=== PATIENT | female | born 1935 | race Caucasian/White ===

== ENCOUNTER 2016-05-02 09:20 | Inpatient (IN) | payer MEDICARE ==
--- NOTE | 2016-05-02 09:46 | ERPHSYRPT ---
- History of Present Illness Time Seen by Provider: 05/02/16 09:38 Source: patient Exam Limitations: no limitations Patient Subjective Stated Complaint: states got out of rehab in [place] for strengthening on tuesday and has upper resp s/s gradually coming on since. c/ o white production sputum with white nasal drainage and intermittent chills. lungs diminshed but clear. skin diaphoretic and pink. states increased sob for days. denies pain or injury. Triage Nursing Assessment: see above Physician History: "Up all night last night with cough with white sputum, blowing nose and congestion." Symptoms present for 2-3 days. Mucinex with some relief. States no energy, gen. malaise, weakness, SOB lani. with exertion along with questionable fever, but no vomiting, diarrhea, chest or abdominal pain. Recently got out of rehab 3 days ago post recently having cardiac event. Pt. with frequency but no dysuria or malodorous urine. Timing/Duration: day(s) (2) Severity: moderate Modifying Factors: Improves With: movement (worsens), ibuprofen Associated Symptoms: shortness of breath, diaphoresis, cough, chills, fever, weakness, No nausea, No vomiting, No abdominal pain, No chest pain, No headaches , No loss of appetite Allergies/Adverse Reactions: adhesive Allergy (Verified 05/02/16 09:33) cephalexin [Cephalexin] Allergy (Verified 05/02/16 09:33) latex [Latex] Allergy (Verified 05/02/16 09:33) levofloxacin [From Levaquin] Allergy (Verified 05/02/16 09:33) Penicillins Allergy (Verified 05/02/16 09:33) cefaclor [From Ceclor] Adverse Reaction (Severe, Verified 05/02/16 09:33) budesonide [From Pulmicort] Adverse Reaction (Mild, Verified 05/02/16 09:33) BRONCHOSPASM TAKES ADVAIR AT HOME Home Medications: Aspirin [Aspir 81] 81 mg PO DAILY 12/28/11 [History] Multivitamin [Multivitamins] 1 cap PO DAILY 12/28/11 [History] Omeprazole 20 MG [Prilosec 20 mg] 40 mg PO DAILY 12/28/11 [History] Paroxetine HCl 20 mg [Paxil 20 MG] 40 mg PO DAILY 12/28/11 [History] Raloxifene HCl 60 mg [Evista 60 MG] 60 mg PO DAILY 12/28/11 [History] Vitamin E 1,000 unit PO DAILY 12/28/11 [History] Metformin HCl 500 mg [Glucophage 500 MG] 500 mg PO BID 11/13/12 [History] Albuterol/Ipratropium 3ml Neb* [DUONEB 0.5-3 MG/3 ml Neb] 3 ml IH Q6H [History] Fluticasone/Salmeterol [Advair 250-50 Diskus] 1 inh PO BID 09/17/13 [History] Lovastatin 40 mg PO DAILY 09/17/13 [History] Calcium Carbonate/Vitamin D3 [Calcarb 600 W-Vitamin D Tab] 1 each PO DAILY 03/16 [History] Levothyroxine Sodium 112 Mcg [Synthroid 112 Mcg] 112 mcg PO DAILY 06/04/14 [History] Vit B Comp/C/FA/Iron/Vit E [Vitamin B Complex Tablet] 1 tab PO DAILY 06/04/14 [ History] Ipratropium/Albuterol Sulfate [Combivent Respimat Inhal Dix] 4 gm IH Q6HPRN PRN 03/06/15 [History] Hx Tetanus, Diphtheria Vaccination/Date Given: Yes Hx Influenza Vaccination/Date Given: Yes Hx Pneumococcal Vaccination/Date Given: Yes Immunizations Up to Date: Yes - Review of Systems Constitutional: Fever, Chills, Fatigue, Weakness Eyes: No Symptoms Ears, Nose, & Throat: Nose Congestion, Nose Discharge, No Throat Pain, No Throat Swelling, No Painful Swallowing Respiratory: Cough, Dyspnea Cardiac: No Chest Pain, No Edema, No Palpitations, No Syncope Abdominal/Gastrointestinal: No Symptoms, No Abdominal Pain, No Nausea, No Vomiting, No Diarrhea Genitourinary Symptoms: No Symptoms, No Dysuria Musculoskeletal: No Symptoms, No Back Pain, No Neck Pain Skin: No Symptoms, No Rash Neurological: No Dizziness, No Focal Weakness, No Sensory Changes Psychological: No Symptoms Endocrine: No Symptoms Hematologic/Lymphatic: No Symptoms Immunological/Allergic: No Symptoms All Other Systems: Reviewed and Negative - Past Medical History Pertinent Past Medical History: Yes Neurological History: No Pertinent History ENT History: Cataracts Cardiac History: Congestive Heart Failure, Coronary Artery Disease, High Cholesterol, Myocardial Infarction ([place]) Respiratory History: Asthma, Bronchitis, COPD, Pneumonia Endocrine Medical History: Diabetes Type II, Hypothyroidism Musculoskeletal History: Arthritis GI Medical History: GERD, Ulcer History: No Pertinent History Psycho-Social History: No Pertinent History Female Reproductive Disorders: No Pertinent History Other Medical History: PT DENIES BEING A DIABETIC BUT DOES TAKE METFORMIN ON HER MEDICATION LIST. HOME 02 - Past Surgical History Past Surgical History: Yes Neuro Surgical History: No Pertinent History Cardiac: Other Respiratory: No Pertinent History Gastrointestinal: No Pertinent History Genitourinary: No Pertinent History Musculoskeletal: No Pertinent History Female Surgical History: Lumpectomy Other Surgical History: BREAST BIOPSYx4, TONSILECTOMY, carotid artery, cataracts removed - Social History Smoking Status: Former smoker How long have you smoked: 50 yrs Exposure to second hand smoke: No Drug Use: none Patient Lives Alone: Yes - Female History Hx Now: No - Nursing Vital Signs Nursing Vital Signs: Initial Vital Signs Temperature 99 F Temperature Source Oral Pulse Rate 84 Respiratory Rate 20 Blood Pressure [Right Arm] 123/61 Pain Intensity 0 - Physical Exam General Appearance: no apparent distress, alert Eye Exam: PERRL/EOMI, eyes nml inspection Ears, Nose, Throat Exam: normal ENT inspection, TMs normal, pharynx normal, moist mucous membranes Neck Exam: normal inspection, non-tender, supple, full range of motion Respiratory Exam: airway intact, diminished breath sounds, rhonchi, wheezing, No respiratory distress Cardiovascular Exam: regular rate/rhythm, normal heart sounds, normal peripheral pulses, tachycardia Gastrointestinal/Abdomen Exam: soft, normal bowel sounds, No tenderness, No distention, No mass Back Exam: normal inspection, normal range of motion, No CVA tenderness, No vertebral tenderness Extremity Exam: normal inspection, normal range of motion, pelvis stable, No pedal edema, No swelling Neurologic Exam: alert, oriented x 3, cooperative, normal mood/affect, nml cerebellar function, nml station & gait, sensation nml, No motor deficits Skin Exam: normal color, warm, dry, No rash Lymphatic Exam: No adenopathy SpO2: 97 Oxygen Delivery: Nasal Cannula - Course Nursing assessment & vital signs reviewed: Yes EKG Interpreted by Me: RATE (108), Sinus Tach, NORMAL AXIS, NORMAL INTERVALS, NORMAL QRS, Non-specific ST Changes, Other (EKG similar to previous on 03/30/16) - Radiology Exams Chest X-ray Interpretation: Interpreted by me, Other (?patchy R infiltrates) Ordered Tests: Active Orders 24 hr Category Date Time Status Electronic Scale Subassembler STAT Care 05/02/16 09:54 Active Cath for Specimen-Straight STAT Care 05/02/16 09:54 Active EKG-ER Only STAT Care 05/02/16 09:54 Active IV Insertion STAT Care 05/02/16 09:54 Active Oxygen-ED Only NASAL CANNULA 2 lpm Care 05/02/16 09:54 Active CHEST 1 VIEW (PORTABLE) Stat Exams 05/02/16 10:00 Completed CBC W DIFF Stat Lab 05/02/16 09:50 Completed CMP Stat Lab 05/02/16 09:50 Completed NT PRO BNP Stat Lab 05/02/16 09:55 Completed TROPONIN Stat Lab 05/02/16 09:55 Completed UA W/ MICROSCOPIC Stat Lab 05/02/16 10:00 Completed Respiratory Nebulizer STAT RT 05/02/16 10:05 Completed Medication Summary Discontinued Medications Generic Name Dose Route Start Last Admin Trade Name Kennethq PRN Reason Stop Dose Admin Acetaminophen 650 mg 05/02/16 09:54 05/02/16 10:28 Tylenol 325 Mg PO 05/02/16 09:55 650 mg STAT STA Administration Acetaminophen Confirm 05/02/16 10:23 Tylenol 325 Mg Administered 05/02/16 10:24 Dose 650 mg .ROUTE .STK-MED ONE Albuterol/Ipratropium Confirm 05/02/16 09:59 Duoneb 0.5-3 Mg/3 Ml Neb Administered 05/02/16 10:00 Dose 3 ml IH .STK-MED ONE Albuterol/Ipratropium 3 ml 05/02/16 10:02 05/02/16 10:07 Duoneb 0.5-3 Mg/3 Ml Neb IH 05/02/16 10:03 3 ml STAT ONE Administration Lorazepam Confirm 05/02/16 10:23 Ativan 2 Mg/1 Ml Vial Administered 05/02/16 10:24 Dose 2 mg .ROUTE .STK-MED ONE Lorazepam 0.5 mg 05/02/16 10:49 05/02/16 10:55 Ativan 2 Mg/1 Ml Vial IV 05/02/16 10:50 0.5 mg STAT ONE Administration Methylprednisolone Sodium Succinate 80 mg 05/02/16 10:02 05/02/16 10:29 Solu-Medrol 125 Mg IV 05/02/16 10:03 80 mg STAT ONE Administration Methylprednisolone Sodium Succinate Confirm 05/02/16 10:23 Solu-Medrol 125 Mg Administered 05/02/16 10:24 Dose 125 mg .ROUTE .STK-MED ONE Lab/Rad Data: Laboratory Result Diagrams 05/02/16 09:50 05/02/16 09:50 Laboratory Results 05/02/16 05/02/16 05/02/16 Range/Units 10:00 09:55 09:50 WBC (4.0-10.5) K/mm3 RBC (4.1-5.4) M/mm3 Hgb (12.0-16.0) gm/dl Hct (35-47) % MCV (78-100) fl MCH (26-32) pg MCHC (32-36) g/dl RDW (11.5-14.0) % Plt Count (150-450) K/mm3 MPV (6-9.5) fl Gran % (36.0-66.0) % Lymphocytes % (24.0-44.0) % Monocytes % (0.0-12.0) % Eosinophils % (0.00-5.0) % Basophils % (0.0-0.4) % Basophils # (0-0.4) Sodium (136-145) mEq/L Potassium (3.5-5.1) mEq/L Chloride (98-107) mEq/L Carbon Dioxide (21-32) mEq/L Anion Gap (5-15) MEQ/L BUN (9-20) mg/dL Creatinine (0.55-1.30) mg/dl Estimated GFR ML/MIN Glucose (70-110) MG/DL Calcium (8.5-10.1) mg/dL Total Bilirubin (0.2-1.0) mg/dL AST (15-37) U/L ALT (12-78) U/L Alkaline Phosphatase (46-116) U/L Troponin I < 0.017 (0.000-0.056) ng/ml NT-Pro-B Natriuret Pep 508 H (0-450) pg/ml Serum Total Protein (6.4-8.2) gm/dL Albumin (3.4-5.0) g/dL Ur Collection Type CATH Urine Color YELLOW (YELLOW) Urine Appearance CLEAR (CLEAR) Urine pH 5.5 (5-6) Ur Specific [place] 1.025 (1.005-1.025) Urine Protein 100 (Negative) Urine Glucose (UA) NEGATIVE (NEGATIVE) mg/dL Urine Ketones NEGATIVE (NEGATIVE) Urine Nitrite NEGATIVE (NEGATIVE) Urine Bilirubin SMALL (NEGATIVE) Urine Urobilinogen 0.2 (0-1) mg/dL Urine WBC (Auto) NEGATIVE (NEGATIVE) Urine RBC (Auto) MODERATE (0-5) Mil/ul Urine Microscopic RBC 2-5 (0-2) /HPF Urine Microscopic WBC 0-2 (0-5) /HPF Ur Epithelial Cells FEW (FEW) /HPF Urine Bacteria FEW (NEGATIVE) /HPF Urine Mucus MODERATE (NEGATIVE) /HPF Influenza Type A Ag POSITIVE (NEGATIVE) Influenza Type B Ag NEGATIVE (NEGATIVE) RSV (PCR) NEGATIVE (Negative) Specimen Received [id number] 05/02/16 05/02/16 Range/Units 09:50 09:50 WBC 4.2 (4.0-10.5) K/mm3 RBC 3.50 L (4.1-5.4) M/mm3 Hgb 10.1 L (12.0-16.0) gm/dl Hct 32.7 L (35-47) % MCV 93.4 (78-100) fl MCH 28.8 (26-32) pg MCHC 30.9 L (32-36) g/dl RDW 13.3 (11.5-14.0) % Plt Count 269 (150-450) K/mm3 MPV 8.4 (6-9.5) fl Gran % 72.8 H (36.0-66.0) % Lymphocytes % 18.0 L (24.0-44.0) % Monocytes % 8.0 (0.0-12.0) % Eosinophils % 0.7 (0.00-5.0) % Basophils % 0.5 (0.0-0.4) % Basophils # 0.02 (0-0.4) Sodium 144 (136-145) mEq/L Potassium 4.0 (3.5-5.1) mEq/L Chloride 105 (98-107) mEq/L Carbon Dioxide 29.0 (21-32) mEq/L Anion Gap 13.5 (5-15) MEQ/L BUN 9 (9-20) mg/dL Creatinine 1.06 (0.55-1.30) mg/dl Estimated GFR 53 ML/MIN Glucose 141 H (70-110) MG/DL Calcium 8.4 L (8.5-10.1) mg/dL Total Bilirubin 0.3 (0.2-1.0) mg/dL AST 19 (15-37) U/L ALT 14 (12-78) U/L Alkaline Phosphatase 62 (46-116) U/L Troponin I (0.000-0.056) ng/ml NT-Pro-B Natriuret Pep (0-450) pg/ml Serum Total Protein 6.9 (6.4-8.2) gm/dL Albumin 3.3 L (3.4-5.0) g/dL Ur Collection Type Urine Color (YELLOW) Urine Appearance (CLEAR) Urine pH (5-6) Ur Specific [place] (1.005-1.025) Urine Protein (Negative) Urine Glucose (UA) (NEGATIVE) mg/dL Urine Ketones (NEGATIVE) Urine Nitrite (NEGATIVE) Urine Bilirubin (NEGATIVE) Urine Urobilinogen (0-1) mg/dL Urine WBC (Auto) (NEGATIVE) Urine RBC (Auto) (0-5) Mil/ul Urine Microscopic RBC (0-2) /HPF Urine Microscopic WBC (0-5) /HPF Ur Epithelial Cells (FEW) /HPF Urine Bacteria (NEGATIVE) /HPF Urine Mucus (NEGATIVE) /HPF Influenza Type A Ag (NEGATIVE) Influenza Type B Ag (NEGATIVE) RSV (PCR) (Negative) Specimen Received - Progress Progress: improved Progress Note: 05/02/16 10:11 patient was given Tylenol, DuoNeb and Solu-Medrol. Patient did seem to improve post treatment. Discussed with : Olivia (agree that patient should be admitted due to her living situation and very symptomatic for influenza.) Counseled pt/family regarding: lab results, diagnosis, rad results - Departure Time of Disposition: 11:37 Departure Disposition: Observation Clinical Impression: Influenza A Condition: Stable Critical Care Time: No
[2016-05-02] MEDS ORDERED: TYLENOL 325 MG PO STA (09:54)
[2016-05-02] MEDS ORDERED: DUONEB 0.5-3 MG/3 ml Neb IH ONE ×2 (09:59→10:02)
[2016-05-02] MEDS ORDERED: solu-MEDROL 125 MG IV ONE (10:02)
[2016-05-02 10:09] LABS: BASOPHIL % 0.5 % (0.0-0.4); Eosinophil % 0.7 % (0.00-5.0); Granulocytes % 72.8 % (36.0-66.0); Mean Cell Volume 93.4 fl (78-100); Mean Platelet Volume 8.4 fl (6-9.5); Platelet Count 269 K/mm3 (150-450); Red Cell Distribution Width 13.3 % (11.5-14.0); White Blood Count 4.2 K/mm3 (4.0-10.5)
[2016-05-02 10:10] LABS: Mean Corpuscular Hemoglobin 28.8 pg (26-32)
[2016-05-02 10:16] LABS: ALBUMIN 3.3 g/dL (3.4-5.0); ANION GAP 13.5 MEQ/L (5-15); BILIRUBIN,TOTAL 0.3 mg/dL (0.2-1.0); Total Protein 6.9 gm/dL (6.4-8.2)
[2016-05-02] MEDS ORDERED: TYLENOL 325 MG ONE (10:23)
[2016-05-02] MEDS ORDERED: Ativan 2 MG/1 ML VIAL ONE (10:23)
[2016-05-02] MEDS ORDERED: solu-MEDROL 125 MG ONE (10:23)
[2016-05-02 10:27] LABS: COMPLETE URINE MICROSCOPIC? YES; Collection Type CATH; Ph 5.5 (5-6)
[2016-05-02 10:37] LABS: Bacteria FEW /HPF (NEGATIVE); Epithelial Cells FEW /HPF (FEW); WBC 0-2 /HPF (0-5)
[2016-05-02 10:38] LABS: Mucus MODERATE /HPF (NEGATIVE)
[2016-05-02 10:45] LABS: TROPONIN < 0.017 ng/ml (0.000-0.056)
[2016-05-02] MEDS ORDERED: Ativan 2 MG/1 ML VIAL IV ONE (10:49)
--- NOTE | 2016-05-02 11:06 | XRAY ---
Indication: Cough and short of breath. History of COPD. Comparison: March 24, 2016. Portable apical lordotic chest now demonstrates subtle right base infiltrate versus atelectasis. Remaining lungs again hyperinflated and clear. Heart is not enlarged. Bony thorax intact again with mild osteopenia and degenerative changes. Impression: New subtle base infiltrate/atelectasis. Correlate clinically.
[2016-05-02] MEDS: Sodium Chloride 0.9% 1000 ML 1,000 ML IV SCH (13:16)
[2016-05-02] MEDS: DUONEB 0.5-3 MG/3 ml Neb IH SCH ×3 (14:20→23:40)
[2016-05-02] MEDS: SYNTHROID 112 MCG PO SCH (14:45)
[2016-05-02] MEDS: Protonix 40MG Tablet PO SCH (14:45)
[2016-05-02] MEDS: Paxil 20 MG PO SCH (14:45)
[2016-05-02] MEDS: ECOTRIN 81 MG PO SCH (14:45)
[2016-05-02] MEDS: THERAGRAN MULTIVITAMIN PO SCH (14:45)
[2016-05-02] MEDS: EVISTA 60 MG PO SCH (14:45)
[2016-05-02] MEDS: Calcium 500MG W/Vit D Tablet PO SCH (14:45)
[2016-05-02] MEDS: Vitamin E 400 UNIT SOFTGEL PO SCH (14:46)
[2016-05-02] MEDS: VITA-BEE WITH C PO SCH (14:46)
[2016-05-02] MEDS: Glucophage 500 MG PO SCH (17:06)
--- NOTE | 2016-05-02 18:14 | PCM.HP ---
History of Present Illness - Chief Complaint Chief Complaint: c/o shortness of breath for 2-3 days History of Present Illness: is a 80 year old female states increased sob for days. denies pain or injury."Up all night last night with cough with white sputum, blowing nose and congestion." Symptoms present for 2-3 days. Mucinex with some relief. States no energy, gen. malaise, weakness, SOB lani. with exertion along with questionable fever, but no vomiting, diarrhea, chest or abdominal pain. Recently got out of rehab 3 days ago post recently having cardiac event. Pt. with frequency but no dysuria or malodorous urine. Timing/Duration: day(s) (2) Severity: moderate Modifying Factors: Improves With: movement (worsens), ibuprofen Associated Symptoms: shortness of breath, diaphoresis, cough, chills, fever, weakness, No nausea, No vomiting, No abdominal pain, No chest pain, No headaches , No loss of appetite - Review of Systems Constitutional: Fever, Chills, Malaise, Weakness Eyes: No Symptoms Ears, Nose, & Throat: No Symptoms Respiratory: Cough, Orthopnea, Short Of Breath, Wheezing Cardiac: No Chest Pain, No Edema, No Syncope Abdominal/Gastrointestinal: No Abdominal Pain, No Nausea, No Vomiting, No Diarrhea Genitourinary Symptoms: No Dysuria Musculoskeletal: No Back Pain, No Neck Pain Skin: No Rash Neurological: No Dizziness, No Focal Weakness, No Sensory Changes Psychological: No Symptoms Endocrine: No Symptoms Hematologic/Lymphatic: No Symptoms Immunological/Allergic: No Symptoms Medications & Allergies Home Medications: Home Medication List Aspirin [Aspir 81] 81 mg PO DAILY 12/28/11 [History Confirmed 05/02/16] Multivitamin [Multivitamins] 1 cap PO DAILY 12/28/11 [History Confirmed 05/02/16 ] Omeprazole 20 MG [Prilosec 20 mg] 40 mg PO DAILY 12/28/11 [History Confirmed ] Paroxetine HCl 20 mg [Paxil 20 MG] 40 mg PO DAILY 12/28/11 [History Confirmed 05/02/16] Raloxifene HCl 60 mg [Evista 60 MG] 60 mg PO DAILY 12/28/11 [History Confirmed 05/02/16] Vitamin E 1,000 unit PO DAILY 12/28/11 [History Confirmed 05/02/16] Metformin HCl 500 mg [Glucophage 500 MG] 500 mg PO BID 11/13/12 [History Confirmed 05/02/16] Albuterol/Ipratropium 3ml Neb* [DUONEB 0.5-3 MG/3 ml Neb] 3 ml IH Q6H [History Confirmed 05/02/16] Fluticasone/Salmeterol [Advair 250-50 Diskus] 1 inh PO BID 09/17/13 [History Confirmed 05/02/16] Lovastatin 40 mg PO DAILY 09/17/13 [History Confirmed 05/02/16] Calcium Carbonate/Vitamin D3 [Calcarb 600 W-Vitamin D Tab] 1 each PO DAILY 03/16 [History Confirmed 05/02/16] Levothyroxine Sodium 112 Mcg [Synthroid 112 Mcg] 112 mcg PO DAILY 06/04/14 [History Confirmed 05/02/16] Vit B Comp/C/FA/Iron/Vit E [Vitamin B Complex Tablet] 1 tab PO DAILY 06/04/14 [ History Confirmed 05/02/16] Ipratropium/Albuterol Sulfate [Combivent Respimat Inhal Ventress] 4 gm IH Q6HPRN PRN 03/06/15 [History Confirmed 05/02/16] Allergies/Adverse Reactions: Allergies Allergy/AdvReac Type Severity Reaction Status Date / Time adhesive Allergy Verified 05/02/16 09:33 cephalexin [Cephalexin] Allergy Verified 05/02/16 09:33 latex [Latex] Allergy Verified 05/02/16 09:33 levofloxacin [From Levaquin] Allergy Verified 05/02/16 09:33 Penicillins Allergy Verified 05/02/16 09:33 cefaclor [From Ceclor] AdvReac Severe Verified 05/02/16 09:33 budesonide [From Pulmicort] AdvReac Mild [place]ON[place]AS Verified 05/02/16 09:33 M - Past Medical History Past Medical History: Yes Neurological History: No Pertinent History ENT History: Cataracts Cardiac History: Coronary Artery Disease, High Cholesterol, Myocardial Infarction ([place]) Respiratory History: Asthma, Bronchitis, COPD, Pneumonia Endocrine Medical History: Hypothyroidism Musculoskelatal History: Arthritis GI Medical History: No Pertinent History History: No Pertinent History Pyscho-Social History: No Pertinent History Reproductive Disorders: No Pertinent History Comment: PT DENIES BEING A DIABETIC BUT DOES TAKE METFORMIN ON HER MEDICATION LIST. HOME 02 - Female History Are you now?: No - Past Surgical History Past Surgical History: Yes Neuro Surgical History: No Pertinent History Cardiac History: Other Respiratory Surgery: No Pertinent History GI Surgical History: No Pertinent History Genitourinary Surgical Hx: No Pertinent History Musculskeletal Surgical Hx: No Pertinent History Female Surgical History: Lumpectomy Other Surgical History: BREAST BIOPSYx4 all benign, TONSILECTOMY, carotid artery , rt. cataracts removed - Social History Smoking Status: Former smoker How long have you smoked: 50 yrs Exposure to second hand smoke: No Alcohol: None Drug Use: none - Physical Exam Vital Signs: Vital Signs - 24 hr Temp Pulse Resp BP Pulse Ox 05/02/16 17:26 98.7 F 110 H 21 126/72 99 05/02/16 14:21 122 H 24 93 L 05/02/16 13:26 99 F 05/02/16 12:10 100.2 F 107 H 22 126/60 94 L 05/02/16 11:38 97 05/02/16 11:21 123/61 94 L 05/02/16 10:28 99 F 05/02/16 10:10 84 20 136/81 96 05/02/16 10:08 107 H 22 99 05/02/16 09:23 99.7 F 104 H 22 160/78 97 Oxygen-Last 24 hours O2 Percentage 2 Liters = 28% O2 Percentage 2 Liters = 28% O2 Percentage 2 Liters = 28% O2 Percentage 3 Liters = 32% O2 Percentage 2 Liters = 28% O2 Percentage 2 Liters = 28% General Appearance: no apparent distress, alert Neurologic Exam: alert, oriented x 3, cooperative, normal mood/affect, nml cerebellar function, nml station & gait, sensation nml, No motor deficits Eye Exam: PERRL/EOMI, eyes nml inspection Ears, Nose, Throat Exam: normal ENT inspection, TMs normal, pharynx normal, moist mucous membranes Neck Exam: normal inspection, non-tender, supple, full range of motion Respiratory Exam: respiratory distress, diminished breath sounds, prolonged expirations, rhonchi, wheezing Cardiovascular Exam: regular rate/rhythm, normal heart sounds, normal peripheral pulses Gastrointestinal/Abdomen Exam: soft, normal bowel sounds, No tenderness, No mass Back Exam: normal inspection, normal range of motion, No CVA tenderness, No vertebral tenderness Extremity Exam: normal inspection, normal range of motion, pelvis stable Skin Exam: normal color, warm, dry, No rash Lymphatic Exam: No adenopathy Results - Other Procedures and Tests Respiratory Therapy 05/02/16 13:35 Respiratory MDI BID Respiratory Nebulizer Q4H 05/02/16 13:36 Oxygen NASAL CANNULA 2 lpm Assessment/Plan (1) Influenza A Current Visit: Yes Status: Acute Assessment & Plan: continue supportive treatment, IV fluids, diet regular Code(s): J10.1 - FLU DUE TO OTH IDENT INFLUENZA VIRUS W OTH RESP MANIFEST (2) COPD exacerbation Current Visit: No Status: Acute Assessment & Plan: continue all home meds, continue bronchodilaters Code(s): J44.1 - CHRONIC OBSTRUCTIVE PULMONARY DISEASE W (ACUTE) EXACERBATION
[2016-05-02] MEDS ORDERED: NovoLOG Insulin SQ PRN (18:40)
[2016-05-02] MEDS: ADVAIR 250-50 DISKUS 14 DOSE IH SCH (19:07)
[2016-05-02] MEDS: TYLENOL 325 MG PO PRN (21:08)
[2016-05-02] MEDS: ZOCOR 20MG PO SCH (22:04)
[2016-05-03] MEDS: DUONEB 0.5-3 MG/3 ml Neb IH SCH ×6 (03:17→23:36)
[2016-05-03] MEDS: ADVAIR 250-50 DISKUS 14 DOSE IH SCH ×2 (07:55→18:31)
[2016-05-03] MEDS: Glucophage 500 MG PO SCH ×2 (08:01→16:58)
[2016-05-03] MEDS: Paxil 20 MG PO SCH (09:31)
[2016-05-03] MEDS: THERAGRAN MULTIVITAMIN PO SCH (09:31)
[2016-05-03] MEDS: ECOTRIN 81 MG PO SCH (09:31)
[2016-05-03] MEDS: Protonix 40MG Tablet PO SCH (09:31)
[2016-05-03] MEDS: EVISTA 60 MG PO SCH (09:31)
[2016-05-03] MEDS: Vitamin E 400 UNIT SOFTGEL PO SCH (09:31)
[2016-05-03] MEDS: Calcium 500MG W/Vit D Tablet PO SCH (09:31)
[2016-05-03] MEDS: VITA-BEE WITH C PO SCH (09:32)
[2016-05-03] MEDS: Sodium Chloride 0.9% 1000 ML 1,000 ML IV SCH (09:32)
[2016-05-03] MEDS: SYNTHROID 112 MCG PO SCH (09:32)
[2016-05-03] MEDS ORDERED: NON-FORMULARY ITEM (Omeprazole 20 Mg [Prilosec 20 Mg] 40 MG) PO SCH (10:00)
[2016-05-03] MEDS ORDERED: VIT E PO SCH (10:00)
[2016-05-03] MEDS ORDERED: IRON PO SCH (10:00)
[2016-05-03] MEDS ORDERED: CALCIUM CARBONATE PO SCH (10:00)
[2016-05-03] MEDS ORDERED: [UNRECOGNIZED DRUG - OTHER] PO SCH (10:00)
[2016-05-03] MEDS ORDERED: NON-FORMULARY ITEM (Multivitamin [Multivitamins] 1 CAP) PO SCH (10:00)
[2016-05-03] MEDS ORDERED: VITAMIN D3 PO SCH (10:00)
[2016-05-03] MEDS ORDERED: VITAMIN E 1000 UNIT PO SCH (10:00)
[2016-05-03] MEDS ORDERED: NON-FORMULARY ITEM (Lovastatin [Lovastatin] 40 MG) PO SCH (10:00)
[2016-05-03] MEDS ORDERED: VIT B COMP PO SCH (10:00)
--- NOTE | 2016-05-03 13:07 | PCM.NOTE ---
Date and Time: 05/03/16 1305 Subjective Assessment: c/o cough, chest congestion - Review of Systems Constitutional: Fever, Chills, Malaise Eyes: No Symptoms Ears, Nose, & Throat: No Symptoms Respiratory: Cough, Orthopnea, Short Of Breath, Wheezing Cardiac: No Chest Pain, No Edema, No Syncope Abdominal/Gastrointestinal: No Abdominal Pain, No Nausea, No Vomiting, No Diarrhea Genitourinary Symptoms: No Dysuria Musculoskeletal: No Back Pain, No Neck Pain Skin: No Rash Neurological: No Dizziness, No Focal Weakness, No Sensory Changes Psychological: No Symptoms Endocrine: No Symptoms Hematologic/Lymphatic: No Symptoms Immunological/Allergic: No Symptoms Objective Exam General Appearance: no apparent distress, alert Neurologic Exam: alert, oriented x 3, cooperative, normal mood/affect, nml cerebellar function, sensation nml, No motor deficits Skin Exam: normal color, warm, dry Eye Exam: PERRL, EOMI, eyes nml inspection Ears, Nose, Throat Exam: normal ENT inspection, pharynx normal, moist mucous membranes Neck Exam: normal inspection, non-tender, supple, full range of motion Respiratory Exam: diminished breath sounds, prolonged expirations, crackles/ rales, rhonchi, wheezing, No respiratory distress Cardiovascular Exam: regular rate/rhythm, normal heart sounds Gastrointestinal/Abdomen Exam: soft, No tenderness, No mass Extremity Exam: normal inspection, normal range of motion Back Exam: normal inspection, normal range of motion, No CVA tenderness, No vertebral tenderness Pelvic Exam: deferred Rectal Exam: deferred OBJECTIVE DATA Vital Signs: Vital Signs - 24 hr Temp Pulse Resp BP Pulse Ox 05/03/16 12:00 98.7 F 106 H 21 140/61 97 05/03/16 11:00 105 H 20 97 05/03/16 07:59 107 H 22 95 05/03/16 07:19 98.0 F 83 22 131/57 98 05/03/16 04:00 98.2 F 105 H 26 H 152/63 95 05/03/16 03:25 105 H 26 H 95 05/03/16 00:32 97.9 F 112 H 18 122/56 93 L 05/02/16 23:44 111 H 20 95 05/02/16 20:19 98.2 F 115 H 17 137/58 96 05/02/16 19:11 116 H 14 97 05/02/16 17:26 98.7 F 110 H 21 126/72 99 05/02/16 14:21 122 H 24 93 L 05/02/16 13:26 99 F Oxygen-Last 24 hours O2 Percentage 2 Liters = 28% O2 Percentage 3 Liters = 32% O2 Percentage 2 Liters = 28% O2 Percentage 2 Liters = 28% O2 Percentage 2 Liters = 28% O2 Percentage 2 Liters = 28% Pain Assessment - Last Documented Pain Intensity 3 Pain Scale Used 0-10 Pain Scale Intake and Output: Intake & Output 05/01/16 05/02/16 05/03/16 05/04/16 11:59 11:59 11:59 11:59 Intake Total 2641 300 Output Total 1000 Balance 1641 300 Lab Results: Accuchecks Date 05/03/16 Date 05/02/16 Time 07:30 Time 16:30 Accucheck Value: 107 Accucheck Value: 207 Accucheck Value: 246 Assessment/Plan (1) Influenza A Current Visit: Yes Status: Acute Assessment & Plan: continue present managemnt Code(s): J10.1 - FLU DUE TO OTH IDENT INFLUENZA VIRUS W OTH RESP MANIFEST (2) COPD exacerbation Current Visit: No Status: Acute Assessment & Plan: continue present management Code(s): J44.1 - CHRONIC OBSTRUCTIVE PULMONARY DISEASE W (ACUTE) EXACERBATION
[2016-05-03] MEDS: OSELTAMIVIR PHOSPHATE 30 MG CAP PO SCH ×2 (13:48→21:49)
[2016-05-03] MEDS: Robitussin AC Syrup Unit Dose Cup PO PRN ×2 (13:53→22:02)
[2016-05-03] MEDS ORDERED: Tamiflu 75MG Capsule PO SCH (14:00)
[2016-05-03] MEDS ORDERED: PROVENTIL 2.5 MG/3 ML NEB IH ONE (21:17)
[2016-05-03] MEDS: PROVENTIL 2.5 MG/3 ML NEB IH PRN (21:18)
[2016-05-03] MEDS: ZOCOR 20MG PO SCH (21:49)
[2016-05-03] MEDS: TYLENOL 325 MG PO PRN (23:59)
[2016-05-04] MEDS: DUONEB 0.5-3 MG/3 ml Neb IH SCH ×7 (03:17→22:37)
[2016-05-04] MEDS: Sodium Chloride 0.9% 1000 ML 1,000 ML IV SCH (05:19)
[2016-05-04] MEDS: Glucophage 500 MG PO SCH ×2 (07:44→16:28)
[2016-05-04] MEDS: EVISTA 60 MG PO SCH (07:44)
[2016-05-04] MEDS: Calcium 500MG W/Vit D Tablet PO SCH (07:44)
[2016-05-04] MEDS: ECOTRIN 81 MG PO SCH (07:44)
[2016-05-04] MEDS: Paxil 20 MG PO SCH (07:44)
[2016-05-04] MEDS: THERAGRAN MULTIVITAMIN PO SCH (07:44)
[2016-05-04] MEDS: Protonix 40MG Tablet PO SCH (07:44)
[2016-05-04] MEDS: SYNTHROID 112 MCG PO SCH (07:45)
[2016-05-04] MEDS: VITA-BEE WITH C PO SCH (07:45)
[2016-05-04] MEDS: Vitamin E 400 UNIT SOFTGEL PO SCH (07:45)
[2016-05-04] MEDS: OSELTAMIVIR PHOSPHATE 30 MG CAP PO SCH ×2 (07:46→21:23)
[2016-05-04] MEDS: ADVAIR 250-50 DISKUS 14 DOSE IH SCH ×2 (08:01→19:02)
--- NOTE | 2016-05-04 12:15 | PCM.NOTE ---
Date and Time: 05/04/16 1213 Subjective Assessment: doing better - Review of Systems Constitutional: No Fever, No Chills Eyes: No Symptoms Ears, Nose, & Throat: No Symptoms Respiratory: No Cough, No Short Of Breath Cardiac: No Chest Pain, No Edema, No Syncope Abdominal/Gastrointestinal: No Abdominal Pain, No Nausea, No Vomiting, No Diarrhea Genitourinary Symptoms: No Dysuria Musculoskeletal: No Back Pain, No Neck Pain Skin: No Rash Neurological: No Dizziness, No Focal Weakness, No Sensory Changes Psychological: No Symptoms Endocrine: No Symptoms Hematologic/Lymphatic: No Symptoms Immunological/Allergic: No Symptoms Objective Exam General Appearance: no apparent distress, alert Neurologic Exam: alert, oriented x 3, cooperative, normal mood/affect, nml cerebellar function, sensation nml, No motor deficits Skin Exam: normal color, warm, dry Eye Exam: PERRL, EOMI, eyes nml inspection Ears, Nose, Throat Exam: normal ENT inspection, pharynx normal, moist mucous membranes Neck Exam: normal inspection, non-tender, supple, full range of motion Respiratory Exam: diminished breath sounds, prolonged expirations, crackles/ rales, wheezing, No respiratory distress Cardiovascular Exam: regular rate/rhythm, normal heart sounds Gastrointestinal/Abdomen Exam: soft, No tenderness, No mass Extremity Exam: normal inspection, normal range of motion Back Exam: normal inspection, normal range of motion, No CVA tenderness, No vertebral tenderness Pelvic Exam: deferred Rectal Exam: deferred OBJECTIVE DATA Vital Signs: Vital Signs - 24 hr Temp Pulse Resp BP Pulse Ox 05/04/16 11:26 98.6 F 98 H 21 104/53 94 L 05/04/16 11:00 98 H 21 94 L 05/04/16 07:25 98.4 F 100 H 21 117/61 95 05/04/16 07:00 110 H 22 97 05/04/16 04:00 99.9 F 118 H 23 135/63 92 L 05/04/16 03:17 118 H 23 92 L 05/04/16 00:00 102.0 F 116 H 23 143/60 94 L 05/03/16 23:59 102 F 05/03/16 23:36 116 H 23 94 L 05/03/16 21:18 107 H 24 97 05/03/16 20:00 98.9 F 104 H 20 122/84 100 05/03/16 18:30 102 H 22 99 05/03/16 16:00 99.0 F 101 H 24 126/59 98 05/03/16 15:00 105 H 20 96 Oxygen-Last 24 hours O2 Percentage 2 Liters = 28% O2 Percentage 2 Liters = 28% O2 Percentage 3 Liters = 32% O2 Percentage 2 Liters = 28% Pain Assessment - Last Documented Pain Intensity 4 Pain Scale Used 0-10 Pain Scale Intake and Output: Intake & Output 05/02/16 05/03/16 05/04/16 05/05/16 11:59 11:59 11:59 11:59 Intake Total 2641 2690 Output Total 1000 3900 Balance 1641 -1210 Lab Results: Accuchecks Date 05/04/16 Date 05/03/16 Date 05/03/16 Time 07:30 Time 22:00 Time 16:30 Accucheck Value: 104 Accucheck Value: 98 Accucheck Value: 109 Assessment/Plan (1) Influenza A Current Visit: Yes Status: Acute Assessment & Plan: continue present management Code(s): J10.1 - FLU DUE TO OTH IDENT INFLUENZA VIRUS W OTH RESP MANIFEST (2) COPD exacerbation Current Visit: Yes Status: Acute Code(s): J44.1 - CHRONIC OBSTRUCTIVE PULMONARY DISEASE W (ACUTE) EXACERBATION
[2016-05-04] MEDS: Lidoderm Patch 5% TOP SCH (12:45)
[2016-05-04] MEDS: ZOCOR 20MG PO SCH (21:23)
[2016-05-04] MEDS: Robitussin AC Syrup Unit Dose Cup PO PRN (23:47)
[2016-05-05] MEDS: Sodium Chloride 0.9% 1000 ML 1,000 ML IV SCH (01:15)
[2016-05-05] MEDS: DUONEB 0.5-3 MG/3 ml Neb IH SCH ×4 (03:06→14:22)
[2016-05-05] MEDS: TYLENOL 325 MG PO PRN (05:33)
[2016-05-05] MEDS: ADVAIR 250-50 DISKUS 14 DOSE IH SCH (07:12)
[2016-05-05] MEDS: Lidoderm Patch 5% TOP SCH (07:42)
[2016-05-05] MEDS: Protonix 40MG Tablet PO SCH (07:43)
[2016-05-05] MEDS: SYNTHROID 112 MCG PO SCH (07:43)
[2016-05-05] MEDS: OSELTAMIVIR PHOSPHATE 30 MG CAP PO SCH (07:43)
[2016-05-05] MEDS: EVISTA 60 MG PO SCH (07:43)
[2016-05-05] MEDS: Glucophage 500 MG PO SCH (07:43)
[2016-05-05] MEDS: Paxil 20 MG PO SCH (07:43)
[2016-05-05] MEDS: THERAGRAN MULTIVITAMIN PO SCH (07:43)
[2016-05-05] MEDS: ECOTRIN 81 MG PO SCH (07:43)
[2016-05-05] MEDS: Calcium 500MG W/Vit D Tablet PO SCH (07:43)
[2016-05-05] MEDS: VITA-BEE WITH C PO SCH (07:44)
[2016-05-05] MEDS: Vitamin E 400 UNIT SOFTGEL PO SCH (07:44)
[2016-05-05] MEDS: PROVENTIL 2.5 MG/3 ML NEB IH PRN (14:10)
[2016-05-05 16:23] VITALS: BP 160/60; PULSE 92; O2SAT 97
== END 2016-05-05 17:30 | disposition home health service (06) | DRG 194 ==
LOC: ED 09:20 → MED SURG 12:18 → OBSVTOIN 05-03 13:05
PROVIDERS: ADMIT General Practice; ATTEND General Practice
DX: J10.1 Influenza due to other identified influenza virus with other respiratory manifestations (principal); J44.1 Chronic obstructive pulmonary disease with (acute) exacerbation; I50.9 Heart failure, unspecified; I25.10 Atherosclerotic heart disease of native coronary artery without angina pectoris; E11.9 Type 2 diabetes mellitus without complications; Z79.4 Long term (current) use of insulin; E03.9 Hypothyroidism, unspecified; M19.90 Unspecified osteoarthritis, unspecified site; K21.9 Gastro-esophageal reflux disease without esophagitis; Z99.81 Dependence on supplemental oxygen; Z79.899 Other long term (current) drug therapy
CPT/HCPCS: 36415; 71010; 80053; 81000; 82962; 83880; 84484; 85025; 87631; 93005; 93041; 94640; 94760; 96374; 96375; 99285; G0378; J2060; J2930; P9612; A9270-GY

== ENCOUNTER 2016-10-26 15:21 | Observation (INO) | payer MEDICARE ==
[2016-10-26] MEDS ORDERED: PHARMACY DOSING REQUEST MC ONE (16:29)
--- NOTE | 2016-10-26 16:53 | XRAY ---
Indication: Coughing phlegm. Fever. Comparison: May 11, 2016. PA/lateral chest unchanged again hyperinflated and clear with incidental left upper lobe calcified granuloma. Heart and mediastinal structures within normal limits. Bony thorax intact. Impression: Stable nonacute hyperinflated chest.
[2016-10-26 17:13] LABS: BASOPHIL % 0.3 % (0.0-0.4); Eosinophil % 5.7 % (0.00-5.0); Granulocytes % 64.1 % (36.0-66.0); Lymphocytes % 23.1 % (24.0-44.0); Mean Cell Volume 87.8 fl (78-100); Mean Corpuscular Hemoglobin 27.9 pg (26-32); Mean Platelet Volume 8.4 fl (6-9.5); Monocytes % 6.8 % (0.0-12.0); Platelet Count 319 K/mm3 (150-450); Red Blood Count 3.69 M/mm3 (4.1-5.4); Red Cell Distribution Width 12.5 % (11.5-14.0); White Blood Count 7.8 K/mm3 (4.0-10.5)
[2016-10-26] MEDS ORDERED: ALBUTEROL SULFATE IH PRN (17:27)
[2016-10-26] MEDS ORDERED: [UNRECOGNIZED DRUG - OTHER] IH PRN (17:27)
[2016-10-26] MEDS ORDERED: ULTRAM 50 MG PO PRN (17:27)
[2016-10-26] MEDS ORDERED: IPRATROPIUM IH PRN (17:27)
[2016-10-26 17:57] LABS: ALBUMIN 3.3 g/dL (3.4-5.0); ANION GAP 13.7 MEQ/L (5-15); BILIRUBIN,TOTAL 0.3 mg/dL (0.2-1.0); Carbon Dioxide 27.4 mEq/L (21-32); Total Protein 7.1 gm/dL (6.4-8.2)
[2016-10-26] MEDS: ECOTRIN 81 MG PO SCH ×2 (17:58→18:04)
[2016-10-26] MEDS: ZOCOR 20MG PO SCH ×2 (17:59→18:03)
[2016-10-26] MEDS: Paxil 20 MG PO SCH ×2 (17:59→18:03)
[2016-10-26] MEDS: EVISTA 60 MG PO SCH ×2 (17:59→18:04)
[2016-10-26] MEDS: THERAGRAN MULTIVITAMIN PO SCH ×2 (17:59→18:04)
[2016-10-26] MEDS: Calcium 500MG W/Vit D Tablet PO SCH ×2 (17:59→18:04)
[2016-10-26] MEDS: Glucophage 500 MG PO SCH ×2 (17:59→18:04)
[2016-10-26] MEDS: solu-MEDROL 40 MG IV SCH ×2 (17:59→18:04)
[2016-10-26] MEDS: Sodium Chloride 0.9% 1000 ML 1,000 ML IV SCH (18:00)
[2016-10-26] MEDS: Protonix 40MG Tablet PO SCH (18:03)
[2016-10-26] MEDS: CLINDAMYCIN-D5W 600 MG/50 ML*** 600 MG/50 ML BAG IV SCH (18:07)
[2016-10-26] MEDS: Vitamin E 400 UNIT SOFTGEL PO SCH (18:08)
[2016-10-26] MEDS: SYNTHROID 112 MCG PO SCH (18:09)
[2016-10-26] MEDS: OSELTAMIVIR PHOSPHATE 30 MG CAP PO SCH (18:09)
[2016-10-26] MEDS: VITA-BEE WITH C PO SCH (18:11)
[2016-10-26] MEDS: DUONEB 0.5-3 MG/3 ml Neb IH SCH (19:13)
[2016-10-26] MEDS: Advair Hfa 115/21 Common canister IH SCH (19:14)
[2016-10-26] MEDS ORDERED: ADVAIR 250-50 DISKUS 14 DOSE IH SCH (22:00)
[2016-10-27] MEDS: DUONEB 0.5-3 MG/3 ml Neb IH SCH ×4 (00:50→19:45)
[2016-10-27] MEDS: CLINDAMYCIN-D5W 600 MG/50 ML*** 600 MG/50 ML BAG IV SCH ×3 (01:13→17:07)
[2016-10-27] MEDS: Advair Hfa 115/21 Common canister IH SCH ×2 (07:15→19:48)
[2016-10-27] MEDS: solu-MEDROL 40 MG IV SCH ×2 (07:57→16:19)
[2016-10-27] MEDS ORDERED: VIT B COMP PO SCH (10:00)
[2016-10-27] MEDS ORDERED: [UNRECOGNIZED DRUG - OTHER] PO SCH (10:00)
[2016-10-27] MEDS ORDERED: NON-FORMULARY ITEM (Multivitamin [Multivitamins] 1 CAP) PO SCH (10:00)
[2016-10-27] MEDS ORDERED: VIT E PO SCH (10:00)
[2016-10-27] MEDS ORDERED: NON-FORMULARY ITEM (Omeprazole 20 Mg [Prilosec 20 Mg] 40 MG) PO SCH (10:00)
[2016-10-27] MEDS ORDERED: VITAMIN D3 PO SCH (10:00)
[2016-10-27] MEDS ORDERED: FOLIC PO SCH (10:00)
[2016-10-27] MEDS ORDERED: NON-FORMULARY ITEM (Lovastatin [Lovastatin] 40 MG) PO SCH (10:00)
[2016-10-27] MEDS ORDERED: CALCIUM CARBONATE PO SCH (10:00)
[2016-10-27] MEDS ORDERED: VITAMIN E 1000 UNIT PO SCH (10:00)
[2016-10-27] MEDS ORDERED: IRON PO SCH (10:00)
[2016-10-27] MEDS: VITA-BEE WITH C PO SCH (10:34)
[2016-10-27] MEDS: Vitamin E 400 UNIT SOFTGEL PO SCH (10:34)
[2016-10-27] MEDS: ENOXAPARIN SODIUM SQ SCH (10:34)
[2016-10-27] MEDS: SYNTHROID 112 MCG PO SCH (10:34)
[2016-10-27] MEDS: OSELTAMIVIR PHOSPHATE 30 MG CAP PO SCH ×2 (10:35→22:02)
[2016-10-27] MEDS: Protonix 40MG Tablet PO SCH (10:35)
[2016-10-27] MEDS: NovoLOG Insulin SQ PRN (11:26)
--- NOTE | 2016-10-27 13:08 | PCM.NOTE ---
Date and Time: 10/27/16 1306 Subjective Assessment: still short of breath - Review of Systems Constitutional: No Fever, No Chills Eyes: No Symptoms Ears, Nose, & Throat: No Symptoms Respiratory: Cough, Orthopnea, Short Of Breath Cardiac: No Chest Pain, No Edema, No Syncope Abdominal/Gastrointestinal: No Abdominal Pain, No Nausea, No Vomiting, No Diarrhea Genitourinary Symptoms: No Dysuria Musculoskeletal: No Back Pain, No Neck Pain Skin: No Rash Neurological: No Dizziness, No Focal Weakness, No Sensory Changes Psychological: No Symptoms Endocrine: No Symptoms Hematologic/Lymphatic: No Symptoms Immunological/Allergic: No Symptoms Objective Exam General Appearance: no apparent distress, alert Neurologic Exam: alert, oriented x 3, cooperative, normal mood/affect, nml cerebellar function, sensation nml, No motor deficits Skin Exam: normal color, warm, dry Eye Exam: PERRL, EOMI, eyes nml inspection Ears, Nose, Throat Exam: normal ENT inspection, pharynx normal, moist mucous membranes Neck Exam: normal inspection, non-tender, supple, full range of motion Respiratory Exam: prolonged expirations, crackles/rales, rhonchi, wheezing, No respiratory distress Cardiovascular Exam: regular rate/rhythm, normal heart sounds Gastrointestinal/Abdomen Exam: soft, No tenderness, No mass Extremity Exam: normal inspection, normal range of motion Back Exam: normal inspection, normal range of motion, No CVA tenderness, No vertebral tenderness Pelvic Exam: deferred Rectal Exam: deferred OBJECTIVE DATA Vital Signs: Vital Signs - 24 hr Temp Pulse Resp BP Pulse Ox 10/27/16 12:58 91 H 18 97 10/27/16 12:03 98.2 F 96 H 20 97 10/27/16 07:13 97.7 F 74 22 99/58 96 10/27/16 04:00 97.6 F 102 H 22 114/58 96 10/27/16 00:54 103 H 18 96 10/27/16 00:00 18 10/26/16 23:36 98.2 F 97 H 20 121/62 96 10/26/16 20:00 98.3 F 103 H 20 118/59 95 10/26/16 19:09 108 H 20 99 10/26/16 17:06 98.5 F 110 H 20 137/59 92 L 10/26/16 16:24 98.5 F 110 H 137/59 10/26/16 16:10 98.5 F 110 H 20 137/59 92 L Oxygen-Last 24 hours O2 Percentage 2 Liters = 28% O2 Percentage 2 Liters = 28% O2 Percentage 2 Liters = 28% O2 Percentage 2 Liters = 28% O2 Percentage 2 Liters = 28% O2 Percentage 3 Liters = 32% Pain Assessment - Last Documented Pain Scale Used 0-10 Pain Scale Intake and Output: Intake & Output 10/25/16 10/26/16 10/27/16 10/28/16 11:59 11:59 11:59 11:59 Intake Total 2036 240 Output Total 1075 400 Balance 961 -160 Weight 75.013 kg Lab Results: Accuchecks Date 10/27/16 Date 10/26/16 Date 10/26/16 Time 11:30 Time 22:00 Time 17:00 Accucheck Value: 165 Accucheck Value: 200 Accucheck Value: 128 Lab Results-Last 24 Hours 10/26/16 10/26/16 10/26/16 Range/Units 17:10 17:10 17:10 WBC 7.8 (4.0-10.5) K/mm3 RBC 3.69 L (4.1-5.4) M/mm3 Hgb 10.3 L (12.0-16.0) gm/dl Hct 32.4 L (35-47) % MCV 87.8 (78-100) fl MCH 27.9 (26-32) pg MCHC 31.8 L (32-36) g/dl RDW 12.5 (11.5-14.0) % Plt Count 319 (150-450) K/mm3 MPV 8.4 (6-9.5) fl Gran % 64.1 (36.0-66.0) % Lymphocytes % 23.1 L (24.0-44.0) % Monocytes % 6.8 (0.0-12.0) % Eosinophils % 5.7 H (0.00-5.0) % Basophils % 0.3 (0.0-0.4) % Basophils # 0.02 (0-0.4) D-Dimer 299 (0-500) ng/mL Sodium 141 (136-145) mEq/L Potassium 4.0 (3.5-5.1) mEq/L Chloride 104 (98-107) mEq/L Carbon Dioxide 27.4 (21-32) mEq/L Anion Gap 13.7 (5-15) MEQ/L BUN 12 (9-20) mg/dL Creatinine 1.25 (0.55-1.30) mg/dl Estimated GFR 44 ML/MIN Glucose 128 H (70-110) MG/DL Hemoglobin A1c (4.5-6.2) Calcium 9.2 (8.5-10.1) mg/dL Total Bilirubin 0.30 (0.2-1.0) mg/dL AST 31 (15-37) U/L ALT 18 (12-78) U/L Alkaline Phosphatase 66 (46-116) U/L Troponin I (0.000-0.056) ng/ml NT-Pro-B Natriuret Pep 253 (0-450) pg/ml Serum Total Protein 7.1 (6.4-8.2) gm/dL Albumin 3.3 L (3.4-5.0) g/dL 10/26/16 10/26/16 Range/Units 17:10 17:30 WBC (4.0-10.5) K/mm3 RBC (4.1-5.4) M/mm3 Hgb (12.0-16.0) gm/dl Hct (35-47) % MCV (78-100) fl MCH (26-32) pg MCHC (32-36) g/dl RDW (11.5-14.0) % Plt Count (150-450) K/mm3 MPV (6-9.5) fl Gran % (36.0-66.0) % Lymphocytes % (24.0-44.0) % Monocytes % (0.0-12.0) % Eosinophils % (0.00-5.0) % Basophils % (0.0-0.4) % Basophils # (0-0.4) D-Dimer (0-500) ng/mL Sodium (136-145) mEq/L Potassium (3.5-5.1) mEq/L Chloride (98-107) mEq/L Carbon Dioxide (21-32) mEq/L Anion Gap (5-15) MEQ/L BUN (9-20) mg/dL Creatinine (0.55-1.30) mg/dl Estimated GFR ML/MIN Glucose (70-110) MG/DL Hemoglobin A1c 6.7 H (4.5-6.2) Calcium (8.5-10.1) mg/dL Total Bilirubin (0.2-1.0) mg/dL AST (15-37) U/L ALT (12-78) U/L Alkaline Phosphatase (46-116) U/L Troponin I < 0.017 (0.000-0.056) ng/ml NT-Pro-B Natriuret Pep (0-450) pg/ml Serum Total Protein (6.4-8.2) gm/dL Albumin (3.4-5.0) g/dL Radiology Exams: Radiology Procedures Category Date Time Status CHEST 2 VIEWS (PA AND LAT) Urgent Exams 10/26/16 Completed Assessment/Plan (1) COPD exacerbation Current Visit: Yes Status: Acute Assessment & Plan: Chief Complaint Diagnosis COPD EXACERBATION Allergies Allergy/AdvReac Type Severity Reaction Status Date / Time adhesive Allergy Verified 10/26/16 16:22 cephalexin [Cephalexin] Allergy Verified 10/26/16 16:22 latex [Latex] Allergy Verified 10/26/16 16:22 levofloxacin [From Levaquin] Allergy Verified 10/26/16 16:22 Penicillins Allergy Verified 10/26/16 16:22 cefaclor [From Ceclor] AdvReac Severe Verified 10/26/16 16:22 budesonide [From Pulmicort] AdvReac Mild BRONCHOSPAS Verified 10/26/16 16:22 M Vital Signs (Last 24 hours) Temp Pulse Resp BP Pulse Ox 10/28/16 07:23 94 H 20 97 10/28/16 06:58 97.9 F 86 20 128/68 86 L 10/28/16 04:00 98.1 F 101 H 22 117/64 96 10/28/16 02:03 101 H 24 98 10/28/16 00:00 98.5 F 113 H 28 H 140/77 91 L 10/27/16 19:56 97.9 F 95 H 26 H 138/60 99 10/27/16 19:48 93 H 20 97 10/27/16 16:29 97.8 F 100 H 22 128/63 97 10/27/16 12:58 91 H 18 97 10/27/16 12:03 98.2 F 96 H 20 97 Home Medications Medication Instructions Recorded Confirmed Last Taken Type Lorazepam 0.5 mg [Ativan 0.5 0.5 mg PO DAILY PRN PRN 10/26/16 10/26/16 22:00 History MG] Tramadol HCl 50 mg [Ultram 50 50 mg PO BID PRN PRN MDD 100 10/26/16 10/26/16 10/08/16 12:00 History mg] 50mg Current Medications Generic Name Dose Route Start Last Admin Trade Name Freq PRN Reason Stop Dose Admin Albuterol/Ipratropium 3 ml 10/26/16 19:00 10/28/16 07:20 Duoneb 0.5-3 Mg/3 Ml Neb IH 11/25/16 18:59 3 ml Q6HRT CLAUDIA Administration Aspirin 81 mg 10/26/16 18:00 10/26/16 18:04 Ecotrin 81 Mg PO 11/25/16 17:59 81 mg DAILY CLAUDIA Administration Calcium Carbonate 1 tab 10/26/16 18:00 10/26/16 18:04 Calcium 500mg W/Vit D Tablet PO 11/25/16 17:59 1 tab DAILY CLAUDIA Administration Enoxaparin Sodium 40 mg 10/27/16 10:00 10/27/16 10:34 Enoxaparin Sodium SQ 11/26/16 09:59 40 mg DAILY CLAUDIA Administration Sodium Chloride 1,000 mls @ 40 mls/hr 10/26/16 16:30 10/27/16 22:07 Sodium Chloride 0.9% 1000 Ml IV 11/25/16 16:29 40 mls/hr .Q24H CLAUDIA Administration Clindamycin HCl/Dextrose 600 mg in 50 mls @ 100 mls/hr 10/26/16 18:00 01:06 Clindamycin-D5w 600 Mg/50 Ml IV 11/25/16 17:59 100 mls/hr Q8H CLAUDIA Administration Insulin Aspart 0 unit 10/26/16 16:27 10/27/16 11:26 Novolog Insulin SQ 11/25/16 16:26 2 unit UD PRN Administration HYPERGLYCEMIA Levothyroxine Sodium 112 mcg 10/26/16 18:00 10/27/16 10:34 Synthroid 112 Mcg PO 11/25/16 17:59 112 mcg DAILY CLAUDIA Administration Lorazepam 0.5 mg 10/26/16 17:27 10/28/16 01:08 Ativan 0.5 Mg PO 11/25/16 17:26 0.5 mg DAILY PRN PRN Administration ANXIETY Metformin HCl 500 mg 10/26/16 18:00 10/28/16 07:52 Glucophage 500 Mg PO 11/25/16 17:59 500 mg BIDWM CLAUDIA Administration Methylprednisolone Sodium Succinate 40 mg 10/26/16 16:30 10/28/16 07:53 Solu-Medrol 40 Mg IV 11/25/16 16:29 40 mg Q8H CLAUDIA Administration Multivitamins 1 tab 10/26/16 18:00 10/26/16 18:04 Theragran Multivitamin PO 11/25/16 17:59 1 tab DAILY CLAUDIA Administration Multivitamins 1 tab 10/26/16 18:00 10/27/16 10:34 Tricia-Bee With C PO 11/25/16 17:59 1 tab DAILY CLAUDIA Administration Oseltamivir Phosphate 30 mg 10/26/16 22:00 10/27/16 22:02 Oseltamivir Phosphate 30 Mg Cap PO 11/25/16 21:59 30 mg BID CLAUDIA Administration Pantoprazole Sodium 40 mg 10/26/16 18:00 10/27/16 10:35 Protonix 40mg Tablet PO 11/25/16 17:59 40 mg DAILY CLAUDIA Administration Paroxetine HCl 40 mg 10/26/16 18:00 10/26/16 18:03 Paxil 20 Mg PO 11/25/16 17:59 40 mg DAILY CLAUDIA Administration Raloxifene HCl 60 mg 10/26/16 18:00 10/26/16 18:04 Evista 60 Mg PO 11/25/16 17:59 60 mg DAILY CLAUDIA Administration Fluticasone/Salmeterol 2 puff 10/26/16 19:00 10/28/16 07:20 Advair Hfa 115/21 Common Canister* IH 11/25/16 18:59 2 puff BIDRT CLAUDIA Administration Simvastatin 20 mg 10/26/16 18:00 10/26/16 18:03 Zocor 20mg PO 11/25/16 17:59 20 mg DAILY CLAUDIA Administration Tramadol HCl 50 mg 10/26/16 17:27 Ultram 50 Mg PO 11/25/16 17:26 BID PRN PRN PAIN Vitamin E 800 u 10/26/16 18:00 10/27/16 10:34 Vitamin E 400 Unit Softgel PO 11/25/16 17:59 800 u DAILY CLAUDIA Administration Discontinued Medications Generic Name Dose Route Start Last Admin Trade Name Freq PRN Reason Stop Dose Admin Non-Formulary Medication 1 each 10/26/16 16:29 10/26/16 18:02 Pharmacy Dosing Request 10/26/16 16:30 1 each STAT ONE Administration Intake & Output (Last 24 hours) 10/25/16 10/26/16 10/27/16 10/28/16 11:59 11:59 11:59 11:59 Intake Total 2036 2811 Output Total 1075 3650 Balance 961 -839 Weight 75.013 kg Laboratory Results (Last 24 hours) 10/28/16 10/28/16 05:05 05:05 WBC 9.6 RBC 3.22 L Hgb 9.0 L Hct 28.3 L MCV 87.9 MCH 27.9 MCHC 31.8 L RDW 12.3 Plt Count 320 MPV 8.6 Sodium 141 Potassium 4.6 Chloride 106 Carbon Dioxide 25.1 Anion Gap 14.4 BUN 16 Creatinine 1.11 Estimated GFR 50 Glucose 176 H Calcium 9.1 Orders (Last 24 hours) Category Date Time Status Ambulate Patient TID Care 10/27/16 13:43 Active BMP AM.LAB Lab 10/28/16 05:05 Completed CBC AM.LAB Lab 10/28/16 05:05 Completed Enoxaparin Sodium [Enoxaparin Sodium] Med 10/27/16 10:00 Active 40 mg SQ DAILY Oxygen NASAL CANNULA 2 lpm RT 10/27/16 19:47 Active Patient Care Notes (Last 24 hours) 10/27/16 13:30 (created 10/27/16 16:07) Case Management Note by Ashlee Saldana DR. ROUNDED AND EVALUATED - DISCUSSED PLAN OF CARE WITH PT. PT VERBALIZED UNDERSTANDING AND ABLE TO REPEAT INFORMATION BACK. ALL QUESTIONS ANSWERED BY DR. HA. DR. HA ENCOURAGED PT TO GET UP AND MOVE ABOUT. ORDERS RECEIVED TO AMBULATE PT IN KEE. Initialized on 10/27/16 16:07 - END OF NOTE Chief Complaint Diagnosis COPD EXACERBATION Allergies Allergy/AdvReac Type Severity Reaction Status Date / Time adhesive Allergy Verified 10/26/16 16:22 cephalexin [Cephalexin] Allergy Verified 10/26/16 16:22 latex [Latex] Allergy Verified 10/26/16 16:22 levofloxacin [From Levaquin] Allergy Verified 10/26/16 16:22 Penicillins Allergy Verified 10/26/16 16:22 cefaclor [From Ceclor] AdvReac Severe Verified 10/26/16 16:22 budesonide [From Pulmicort] AdvReac Mild BRONCHOSPAS Verified 10/26/16 16:22 M Vital Signs (Last 24 hours) Temp Pulse Resp BP Pulse Ox 10/28/16 07:23 94 H 20 97 10/28/16 06:58 97.9 F 86 20 128/68 86 L 10/28/16 04:00 98.1 F 101 H 22 117/64 96 10/28/16 02:03 101 H 24 98 10/28/16 00:00 98.5 F 113 H 28 H 140/77 91 L 10/27/16 19:56 97.9 F 95 H 26 H 138/60 99 10/27/16 19:48 93 H 20 97 10/27/16 16:29 97.8 F 100 H 22 128/63 97 10/27/16 12:58 91 H 18 97 10/27/16 12:03 98.2 F 96 H 20 97 Home Medications Medication Instructions Recorded Confirmed Last Taken Type Lorazepam 0.5 mg [Ativan 0.5 0.5 mg PO DAILY PRN PRN 10/26/16 10/26/16 22:00 History MG] Tramadol HCl 50 mg [Ultram 50 50 mg PO BID PRN PRN MDD 100 10/26/16 10/26/16 10/08/16 12:00 History mg] 50mg Current Medications Generic Name Dose Route Start Last Admin Trade Name Freq PRN Reason Stop Dose Admin Albuterol/Ipratropium 3 ml 10/26/16 19:00 10/28/16 07:20 Duoneb 0.5-3 Mg/3 Ml Neb IH 11/25/16 18:59 3 ml Q6HRT CLAUDIA Administration Aspirin 81 mg 10/26/16 18:00 10/26/16 18:04 Ecotrin 81 Mg PO 11/25/16 17:59 81 mg DAILY CLAUDIA Administration Calcium Carbonate 1 tab 10/26/16 18:00 10/26/16 18:04 Calcium 500mg W/Vit D Tablet PO 11/25/16 17:59 1 tab DAILY CLAUDIA Administration Enoxaparin Sodium 40 mg 10/27/16 10:00 10/27/16 10:34 Enoxaparin Sodium SQ 11/26/16 09:59 40 mg DAILY CLAUDIA Administration Sodium Chloride 1,000 mls @ 40 mls/hr 10/26/16 16:30 10/27/16 22:07 Sodium Chloride 0.9% 1000 Ml IV 11/25/16 16:29 40 mls/hr .Q24H CLAUDIA Administration Clindamycin HCl/Dextrose 600 mg in 50 mls @ 100 mls/hr 10/26/16 18:00 01:06 Clindamycin-D5w 600 Mg/50 Ml IV 11/25/16 17:59 100 mls/hr Q8H CLAUDIA Administration Insulin Aspart 0 unit 10/26/16 16:27 10/27/16 11:26 Novolog Insulin SQ 11/25/16 16:26 2 unit UD PRN Administration HYPERGLYCEMIA Levothyroxine Sodium 112 mcg 10/26/16 18:00 10/27/16 10:34 Synthroid 112 Mcg PO 11/25/16 17:59 112 mcg DAILY CLAUDIA Administration Lorazepam 0.5 mg 10/26/16 17:27 10/28/16 01:08 Ativan 0.5 Mg PO 11/25/16 17:26 0.5 mg DAILY PRN PRN Administration ANXIETY Metformin HCl 500 mg 10/26/16 18:00 10/28/16 07:52 Glucophage 500 Mg PO 11/25/16 17:59 500 mg BIDWM CLAUDIA Administration Methylprednisolone Sodium Succinate 40 mg 10/26/16 16:30 10/28/16 07:53 Solu-Medrol 40 Mg IV 11/25/16 16:29 40 mg Q8H CLAUDIA Administration Multivitamins 1 tab 10/26/16 18:00 10/26/16 18:04 Theragran Multivitamin PO 11/25/16 17:59 1 tab DAILY CLAUDIA Administration Multivitamins 1 tab 10/26/16 18:00 10/27/16 10:34 Tricia-Bee With C PO 11/25/16 17:59 1 tab DAILY CLAUDIA Administration Oseltamivir Phosphate 30 mg 10/26/16 22:00 10/27/16 22:02 Oseltamivir Phosphate 30 Mg Cap PO 11/25/16 21:59 30 mg BID CLAUDIA Administration Pantoprazole Sodium 40 mg 10/26/16 18:00 10/27/16 10:35 Protonix 40mg Tablet PO 11/25/16 17:59 40 mg DAILY CLAUDIA Administration Paroxetine HCl 40 mg 10/26/16 18:00 10/26/16 18:03 Paxil 20 Mg PO 11/25/16 17:59 40 mg DAILY CLAUDIA Administration Raloxifene HCl 60 mg 10/26/16 18:00 10/26/16 18:04 Evista 60 Mg PO 11/25/16 17:59 60 mg DAILY CLAUDIA Administration Fluticasone/Salmeterol 2 puff 10/26/16 19:00 10/28/16 07:20 Advair Hfa 115/21 Common Canister* IH 11/25/16 18:59 2 puff BIDRT CLAUDIA Administration Simvastatin 20 mg 10/26/16 18:00 10/26/16 18:03 Zocor 20mg PO 11/25/16 17:59 20 mg DAILY CLAUDIA Administration Tramadol HCl 50 mg 10/26/16 17:27 Ultram 50 Mg PO 11/25/16 17:26 BID PRN PRN PAIN Vitamin E 800 u 10/26/16 18:00 10/27/16 10:34 Vitamin E 400 Unit Softgel PO 11/25/16 17:59 800 u DAILY CLAUDIA Administration Discontinued Medications Generic Name Dose Route Start Last Admin Trade Name Freq PRN Reason Stop Dose Admin Non-Formulary Medication 1 each 10/26/16 16:29 10/26/16 18:02 Pharmacy Dosing Request 10/26/16 16:30 1 each STAT ONE Administration Intake & Output (Last 24 hours) 10/25/16 10/26/16 10/27/16 09/21/17 11:59 11:59 11:59 11:59 Intake Total 2 9401 Output Total 4671 3650 Balance 961 -839 Weight 75.013 kg Laboratory Results (Last 24 hours) 10/28/16 10/28/16 05:05 05:05 WBC 9.6 RBC 3.22 L Hgb 9.0 L Hct 28.3 L MCV 87.9 MCH 27.9 MCHC 31.8 L RDW 12.3 Plt Count 320 MPV 8.6 Sodium 141 Potassium 4.6 Chloride 106 Carbon Dioxide 25.1 Anion Gap 14.4 BUN 16 Creatinine 1.11 Estimated GFR 50 Glucose 176 H Calcium 9.1 Orders (Last 24 hours) Category Date Time Status Ambulate Patient TID Care 10/27/16 13:43 Active BMP AM.LAB Lab 10/28/16 05:05 Completed CBC AM.LAB Lab 10/28/16 05:05 Completed Enoxaparin Sodium [Enoxaparin Sodium] Med 10/27/16 10:00 Active 40 mg SQ DAILY Oxygen NASAL CANNULA 2 lpm RT 10/27/16 19:47 Active Patient Care Notes (Last 24 hours) 10/27/16 13:30 (created 10/27/16 16:07) Case Management Note by Ashlee Saldana DR. ROUNDED AND EVALUATED - DISCUSSED PLAN OF CARE WITH PT. PT VERBALIZED UNDERSTANDING AND ABLE TO REPEAT INFORMATION BACK. ALL QUESTIONS ANSWERED BY DR. HA. DR. HA ENCOURAGED PT TO GET UP AND MOVE ABOUT. ORDERS RECEIVED TO AMBULATE PT IN KEE. Initialized on 10/27/16 16:07 - END OF NOTE Code(s): J44.1 - CHRONIC OBSTRUCTIVE PULMONARY DISEASE W (ACUTE) EXACERBATION (2) Diabetes mellitus type 2 Current Visit: Yes Status: Chronic Code(s): E11.9 - TYPE 2 DIABETES MELLITUS WITHOUT COMPLICATIONS
[2016-10-27] MEDS: Glucophage 500 MG PO SCH (16:20)
[2016-10-27] MEDS: Sodium Chloride 0.9% 1000 ML 1,000 ML IV SCH (22:07)
[2016-10-28] MEDS: CLINDAMYCIN-D5W 600 MG/50 ML*** 600 MG/50 ML BAG IV SCH ×2 (01:06→09:48)
[2016-10-28] MEDS: solu-MEDROL 40 MG IV SCH ×3 (01:06→15:27)
[2016-10-28] MEDS: Ativan 0.5 MG PO PRN ×2 (01:08→09:49)
[2016-10-28] MEDS: DUONEB 0.5-3 MG/3 ml Neb IH SCH ×3 (02:03→13:02)
[2016-10-28 05:30] LABS: Mean Cell Volume 87.9 fl (78-100); Mean Platelet Volume 8.6 fl (6-9.5); Platelet Count 320 K/mm3 (150-450); Red Blood Count 3.22 M/mm3 (4.1-5.4); Red Cell Distribution Width 12.3 % (11.5-14.0); White Blood Count 9.6 K/mm3 (4.0-10.5)
[2016-10-28 05:42] LABS: ANION GAP 14.4 MEQ/L (5-15); Carbon Dioxide 25.1 mEq/L (21-32); Potassium 4.6 mEq/L (3.5-5.1)
[2016-10-28 06:40] LABS: Mean Corpuscular Hemoglobin 27.9 pg (26-32)
[2016-10-28] MEDS: Advair Hfa 115/21 Common canister IH SCH (07:20)
[2016-10-28] MEDS: Glucophage 500 MG PO SCH (07:52)
[2016-10-28] MEDS: ENOXAPARIN SODIUM SQ SCH (09:30)
[2016-10-28] MEDS: Vitamin E 400 UNIT SOFTGEL PO SCH (09:31)
--- NOTE | 2016-10-28 09:31 | PCM.DCORD ---
- Discharge Discharge Date: 10/28/16 Disposition: Home, Self-Care Condition: Stable Prescriptions: New Clindamycin HCl 300 mg PO QID #30 capsule Methylprednisolone Packet [Medrol Dosepack] 4 mg PO UD #30 packet Continue Multivitamin [Multivitamins] 1 cap PO DAILY Vitamin E 1,000 unit PO DAILY Omeprazole 20 MG [Prilosec 20 mg] 40 mg PO DAILY Aspirin [Aspir 81] 81 mg PO DAILY Raloxifene HCl 60 mg [Evista 60 MG] 60 mg PO DAILY Paroxetine HCl 20 mg [Paxil 20 MG] 40 mg PO DAILY Metformin HCl 500 mg [Glucophage 500 MG] 500 mg PO BID Albuterol/Ipratropium 3ml Neb* [DUONEB 0.5-3 MG/3 ml Neb] 3 ml IH Q6H Lovastatin 40 mg PO DAILY Fluticasone/Salmeterol [Advair 250-50 Diskus] 1 inh PO BID Calcium Carbonate/Vitamin D3 [Calcarb 600 W-Vitamin D Tab] 1 each PO DAILY Levothyroxine Sodium 112 Mcg [Synthroid 112 Mcg] 112 mcg PO DAILY Vit B Comp/C/Folic/Iron/Vit E [Vitamin B Complex Tablet] 1 tab PO DAILY Ipratropium/Albuterol Sulfate [Combivent Respimat Inhal [place]] 4 gm IH Q6HPRN PRN PRN Reason: sob Oseltamivir Phosphate [Oseltamivir Phosphate 30 mg Cap] 30 mg PO BID #5 capsule Lorazepam 0.5 mg [Ativan 0.5 MG] 0.5 mg PO DAILY PRN PRN PRN Reason: Anxiety Tramadol HCl 50 mg [Ultram 50 mg] 50 mg PO BID PRN PRN MDD 100 PRN Reason: Pain Follow up with: RENATO KIRBY [Primary Care Provider] - 1 Week
[2016-10-28] MEDS: EVISTA 60 MG PO SCH (09:36)
[2016-10-28] MEDS: Calcium 500MG W/Vit D Tablet PO SCH (09:36)
[2016-10-28] MEDS: THERAGRAN MULTIVITAMIN PO SCH (09:36)
[2016-10-28] MEDS: ECOTRIN 81 MG PO SCH (09:36)
[2016-10-28] MEDS: Paxil 20 MG PO SCH (09:36)
[2016-10-28] MEDS: Protonix 40MG Tablet PO SCH (09:37)
[2016-10-28] MEDS: ZOCOR 20MG PO SCH (09:39)
[2016-10-28] MEDS: VITA-BEE WITH C PO SCH (09:40)
[2016-10-28] MEDS: SYNTHROID 112 MCG PO SCH (09:41)
[2016-10-28] MEDS: OSELTAMIVIR PHOSPHATE 30 MG CAP PO SCH (09:41)
[2016-10-28] MEDS: NovoLOG Insulin SQ PRN (11:42)
[2016-10-28 13:05] VITALS: O2SAT 95
[2016-10-28 16:05] VITALS: BP 150/70; PULSE 90
== END 2016-10-28 16:15 | disposition home or self-care (01) ==
LOC: MED SURG 16:03
PROVIDERS: ADMIT General Practice; ATTEND General Practice
DX: J44.1 Chronic obstructive pulmonary disease with (acute) exacerbation (principal); R09.02 Hypoxemia; I11.0 Hypertensive heart disease with heart failure; I50.9 Heart failure, unspecified; E78.5 Hyperlipidemia, unspecified; E03.9 Hypothyroidism, unspecified; K21.9 Gastro-esophageal reflux disease without esophagitis; E11.9 Type 2 diabetes mellitus without complications; Z79.4 Long term (current) use of insulin; Z79.899 Other long term (current) drug therapy
CPT/HCPCS: 36415; 71020; 80048; 80053; 82962; 83036; 83880; 84484; 85025; 85027; 85379; 93005; 94640; 94760; G0378; J1650; J2920; A9270-GY

== ENCOUNTER 2016-12-02 17:14 | Observation (INO) | payer MEDICARE ==
[2016-12-02] MEDS ORDERED: Sodium Chloride 0.9% 100 ML IVPB 100 ML IV ONE (17:58)
[2016-12-02] MEDS ORDERED: DUONEB 0.5-3 MG/3 ml Neb IH ONE (18:09)
[2016-12-02 18:51] LABS: Mean Cell Volume 90.8 fl (78-100); Mean Corpuscular Hemoglobin 28.5 pg (26-32); Mean Platelet Volume 8.7 fl (6-9.5); Platelet Count 228 K/mm3 (150-450); Red Blood Count 3.47 M/mm3 (4.1-5.4); Red Cell Distribution Width 13.2 % (11.5-14.0); White Blood Count 6.4 K/mm3 (4.0-10.5)
[2016-12-02] MEDS: DUONEB 0.5-3 MG/3 ml Neb IH SCH (19:34)
[2016-12-02 19:35] LABS: ANION GAP 13.1 MEQ/L (5-15); BILIRUBIN,TOTAL 0.3 mg/dL (0.2-1.0); Carbon Dioxide 29.3 mEq/L (21-32); Potassium 4.1 mEq/L (3.5-5.1); Total Protein 6.5 gm/dL (6.4-8.2)
--- NOTE | 2016-12-02 19:50 | XRAY ---
Exam: Two-view chest from 12/02/2016. Comparison: Two-view chest from 10/26/2016. Indication: Exacerbation of COPD. Findings: Upright PA and lateral chest films are submitted for evaluation. The heart size and contour are normal. The svetlana and mediastinal structures appear unremarkable. The lungs are hyperinflated. This is unchanged and is probably due to COPD. Correlate clinically. There is a small stable calcified granuloma within the left upper lobe. No air space infiltrates, vascular congestion, pneumothorax, or pleural fluid is seen. Minimal right apical pleural thickening/scarring is seen. The bones are demineralized. No acute osseous process is seen. Impression: 1. Hyperinflation of the lungs consistent with COPD representing no change. 2. No infiltrates to suggest focal pneumonia or other acute cardiopulmonary process is seen. This is unchanged from 10/26/2016.
[2016-12-02] MEDS ORDERED: PHARMACY DOSING REQUEST MC ONE (20:00)
[2016-12-02] MEDS: solu-MEDROL 40 MG IV SCH (22:30)
[2016-12-02] MEDS: CLINDAMYCIN-D5W 600 MG/50 ML*** 600 MG/50 ML BAG IV SCH (22:30)
[2016-12-03] MEDS: CLINDAMYCIN-D5W 600 MG/50 ML*** 600 MG/50 ML BAG IV SCH ×3 (05:57→21:57)
[2016-12-03] MEDS: solu-MEDROL 40 MG IV SCH ×3 (05:59→21:56)
[2016-12-03] MEDS: DUONEB 0.5-3 MG/3 ml Neb IH SCH ×4 (06:31→19:01)
[2016-12-03] MEDS: Advair Hfa 115/21 Common canister IH SCH ×2 (06:32→19:02)
[2016-12-03] MEDS ORDERED: Sodium Chloride 0.9% 10 ML FLUSH Syringe IV PRN (08:45)
[2016-12-03] MEDS ORDERED: Ativan 0.5 MG PO PRN (11:18)
[2016-12-03] MEDS: Paxil 20 MG PO SCH (11:43)
[2016-12-03] MEDS: EVISTA 60 MG PO SCH (11:44)
[2016-12-03] MEDS: SYNTHROID 112 MCG PO SCH (11:44)
[2016-12-03] MEDS: Protonix 40MG Tablet PO SCH (11:44)
[2016-12-03] MEDS: ECOTRIN 81 MG PO SCH (11:44)
[2016-12-03] MEDS: THERAGRAN MULTIVITAMIN PO SCH (11:44)
[2016-12-03] MEDS: VITA-BEE WITH C PO SCH (11:44)
--- NOTE | 2016-12-03 12:53 | PCM.NOTE ---
Date and Time: 12/03/16 1251 Subjective Assessment: doing ok - Review of Systems Constitutional: No Fever, No Chills Eyes: No Symptoms Ears, Nose, & Throat: No Symptoms Respiratory: Cough, Orthopnea, Short Of Breath, Wheezing Cardiac: No Chest Pain, No Edema, No Syncope Abdominal/Gastrointestinal: No Abdominal Pain, No Nausea, No Vomiting, No Diarrhea Genitourinary Symptoms: No Dysuria Musculoskeletal: No Back Pain, No Neck Pain Skin: No Rash Neurological: No Dizziness, No Focal Weakness, No Sensory Changes Psychological: No Symptoms Endocrine: No Symptoms Hematologic/Lymphatic: No Symptoms Immunological/Allergic: No Symptoms Objective Exam General Appearance: no apparent distress, alert Neurologic Exam: alert, oriented x 3, cooperative, normal mood/affect, nml cerebellar function, sensation nml, No motor deficits Skin Exam: normal color, warm, dry Eye Exam: PERRL, EOMI, eyes nml inspection Ears, Nose, Throat Exam: normal ENT inspection, pharynx normal, moist mucous membranes Neck Exam: normal inspection, non-tender, supple, full range of motion Respiratory Exam: normal breath sounds, lungs clear, No respiratory distress Cardiovascular Exam: regular rate/rhythm, normal heart sounds Gastrointestinal/Abdomen Exam: soft, No tenderness, No mass Extremity Exam: normal inspection, normal range of motion Back Exam: normal inspection, normal range of motion, No CVA tenderness, No vertebral tenderness Pelvic Exam: deferred Rectal Exam: deferred OBJECTIVE DATA Vital Signs: Vital Signs - 24 hr Temp Pulse Resp BP Pulse Ox 12/03/16 12:41 97.6 F 87 20 168/82 96 12/03/16 10:47 96 H 20 93 L 12/03/16 07:03 97.8 F 83 22 144/65 93 L 12/03/16 06:35 89 20 93 L 12/03/16 04:00 97.4 F 88 22 159/64 94 L 12/02/16 23:00 98.1 F 92 H 22 119/58 93 L 12/02/16 19:51 98.4 F 95 H 20 139/60 95 12/02/16 19:34 94 H 20 98 12/02/16 17:54 98 F 95 H 20 139/60 95 12/02/16 17:43 98 F 95 H 20 139/60 95 Oxygen-Last 24 hours O2 Percentage 2 Liters = 28% O2 Percentage 2 Liters = 28% O2 Percentage 2 Liters = 28% O2 Percentage 3 Liters = 32% O2 Percentage 3 Liters = 32% O2 Percentage 3 Liters = 32% Intake and Output: Intake & Output 12/01/16 12/02/16 12/03/16 12/04/16 11:59 11:59 11:59 11:59 Intake Total 1648 360 Output Total 300 Balance 1648 60 Weight 76.36 kg Lab Results: Accuchecks Date 12/03/16 Date 12/02/16 Time 07:30 Time 21:00 Accucheck Value: 197 Accucheck Value: 151 Lab Results-Last 24 Hours 12/02/16 12/02/16 12/02/16 Range/Units 18:50 18:50 18:50 WBC 6.4 (4.0-10.5) K/mm3 RBC 3.47 L (4.1-5.4) M/mm3 Hgb 9.9 L (12.0-16.0) gm/dl Hct 31.5 L (35-47) % MCV 90.8 (78-100) fl MCH 28.5 (26-32) pg MCHC 31.4 L (32-36) g/dl RDW 13.2 (11.5-14.0) % Plt Count 228 (150-450) K/mm3 MPV 8.7 (6-9.5) fl Sodium 141 (136-145) mEq/L Potassium 4.1 (3.5-5.1) mEq/L Chloride 103 (98-107) mEq/L Carbon Dioxide 29.3 (21-32) mEq/L Anion Gap 13.1 (5-15) MEQ/L BUN 19 (9-20) mg/dL Creatinine 1.12 (0.55-1.30) mg/dl Estimated GFR 50 ML/MIN Glucose 102 (70-110) MG/DL Calcium 8.8 (8.5-10.1) mg/dL Total Bilirubin 0.30 (0.2-1.0) mg/dL AST 20 (15-37) U/L ALT 19 (12-78) U/L Alkaline Phosphatase 59 (46-116) U/L NT-Pro-B Natriuret Pep 263 (0-450) pg/ml Serum Total Protein 6.5 (6.4-8.2) gm/dL Albumin 4.0 (3.4-5.0) g/dL Influenza Type A Ag NEGATIVE (NEGATIVE) Influenza Type B Ag NEGATIVE (NEGATIVE) RSV (PCR) NEGATIVE (Negative) Radiology Exams: Radiology Procedures Category Date Time Status CHEST 2 VIEWS (PA AND LAT) Routine Exams 12/02/16 18:00 Completed Assessment/Plan (1) COPD exacerbation Current Visit: Yes Status: Acute Assessment & Plan: continue present management Code(s): J44.1 - CHRONIC OBSTRUCTIVE PULMONARY DISEASE W (ACUTE) EXACERBATION (2) Diabetes mellitus type 2 Current Visit: Yes Status: Chronic Code(s): E11.9 - TYPE 2 DIABETES MELLITUS WITHOUT COMPLICATIONS
[2016-12-03] MEDS: ULTRAM 50 MG PO PRN (14:24)
[2016-12-03] MEDS: Sodium Chloride 0.9% 10 ML FLUSH Syringe IV SCH ×2 (17:10→22:21)
[2016-12-03] MEDS: Glucophage 500 MG PO SCH (17:10)
[2016-12-03] MEDS: NovoLOG Insulin SQ PRN (21:59)
[2016-12-03] MEDS ORDERED: ZOCOR 20MG PO SCH (22:00)
[2016-12-04] MEDS: solu-MEDROL 40 MG IV SCH ×2 (06:09→12:35)
[2016-12-04] MEDS: CLINDAMYCIN-D5W 600 MG/50 ML*** 600 MG/50 ML BAG IV SCH ×2 (06:09→12:36)
[2016-12-04] MEDS: Sodium Chloride 0.9% 10 ML FLUSH Syringe IV SCH ×2 (06:10→12:36)
[2016-12-04] MEDS: Advair Hfa 115/21 Common canister IH SCH (06:57)
[2016-12-04] MEDS: DUONEB 0.5-3 MG/3 ml Neb IH SCH ×2 (06:57→11:33)
--- NOTE | 2016-12-04 07:35 | PCM.DS ---
Discharge Summary Date of Admission: 12/02/16 17:33 Admitting Physician: RENATO KIRBY Primary Care Provider: RENATO KIRBY Allergies Allergies adhesive Allergy (Verified 10/26/16 16:22) cephalexin [Cephalexin] Allergy (Verified 10/26/16 16:22) latex [Latex] Allergy (Verified 10/26/16 16:22) levofloxacin [From Levaquin] Allergy (Verified 10/26/16 16:22) Penicillins Allergy (Verified 10/26/16 16:22) cefaclor [From Ceclor] Adverse Reaction (Severe, Verified 10/26/16 16:22) budesonide [From Pulmicort] Adverse Reaction (Mild, Verified 10/26/16 16:22) BRONCHOSPASM TAKES ADVAIR AT HOME Hospital Summary - Hospital Course Hospital Course: Admission Data Date of Arrival on Unit 12/02/16 Time of Arrival on Unit 17:59 Admitted From Home Diagnosis exac copd Self Treatment of Chief SOB, COUGHING, SEVERE HEADACHES, WEAKNESS Complaint Vital Signs Temp Pulse Resp BP Pulse Ox 12/04/16 07:11 97.8 F 78 20 116/82 97 12/04/16 06:57 97 H 18 98 12/04/16 04:22 97.3 F 18 128/60 94 L 12/04/16 03:50 98.5 F 106 H 18 122/62 95 12/04/16 00:00 98.5 F 106 H 18 122/62 95 12/03/16 19:52 98.3 F 104 H 18 126/58 95 12/03/16 19:02 103 H 20 96 12/03/16 15:10 97.5 F 86 20 159/78 96 12/03/16 14:47 104 H 18 96 12/03/16 12:41 97.6 F 87 20 168/82 96 12/03/16 10:47 96 H 20 93 L 02 Sat and 02 Percent O2 Sat by Pulse Oximetry 97 O2 Sat by Pulse Oximetry 98 O2 Sat by Pulse Oximetry 94 O2 Sat by Pulse Oximetry 95 O2 Sat by Pulse Oximetry 95 O2 Sat by Pulse Oximetry 95 O2 Sat by Pulse Oximetry 96 O2 Sat by Pulse Oximetry 96 O2 Sat by Pulse Oximetry 96 O2 Sat by Pulse Oximetry 96 O2 Sat by Pulse Oximetry 93 O2 Percentage 2 Liters = 28% O2 Percentage 2 Liters = 28% O2 Percentage 2 Liters = 28% O2 Percentage 2 Liters = 28% O2 Percentage 2 Liters = 28% O2 Percentage 2 Liters = 28% O2 Percentage 2 Liters = 28% Intake and Output 12/03/16 12/04/16 11:59 11:59 Intake Total 1648 1911 Output Total 1900 Balance 1648 11 Intake: Intake, Oral Amount 1500 1590 Intake, IV Amount 98 121 Intake, IVPB: 50 200 Output: Output, Urine Amount 1900 Other: Number of Voids 4 Number of Bowel Movements 0 Weight 76.36 kg Weight 12/01/16 12/02/16 12/03/16 12/04/16 11:59 11:59 11:59 11:59 Weight 76.36 kg Allergies Allergy/AdvReac Type Severity Reaction Status Date / Time adhesive Allergy Verified 10/26/16 16:22 cephalexin [Cephalexin] Allergy Verified 10/26/16 16:22 latex [Latex] Allergy Verified 10/26/16 16:22 levofloxacin [From Levaquin] Allergy Verified 10/26/16 16:22 Penicillins Allergy Verified 10/26/16 16:22 cefaclor [From Ceclor] AdvReac Severe Verified 10/26/16 16:22 budesonide [From Pulmicort] AdvReac Mild BRONCHOSPAS Verified 10/26/16 16:22 M In-Patient Medications Generic Name Dose Route Start Last Admin Trade Name Freq PRN Reason Stop Dose Admin Albuterol/Ipratropium 3 ml 12/03/16 07:00 12/04/16 06:57 Duoneb 0.5-3 Mg/3 Ml Neb IH 01/02/17 06:59 3 ml QIDRT CLAUDIA Administration Aspirin 81 mg 12/03/16 11:30 12/03/16 11:44 Ecotrin 81 Mg PO 01/02/17 11:29 81 mg DAILY CLAUDIA Administration Calcium Carbonate 1 tab 12/04/16 10:00 Calcium 500mg W/Vit D Tablet PO 01/03/17 09:59 DAILY CLAUDIA Clindamycin HCl/Dextrose 600 mg in 50 mls @ 100 mls/hr 12/02/16 22:00 06:09 Clindamycin-D5w 600 Mg/50 Ml IV 01/01/17 21:59 100 mls/hr Q8HT CLAUDIA Administration Insulin Aspart 0 unit 12/03/16 15:17 12/03/16 21:59 Novolog Insulin SQ 01/02/17 15:16 2 unit UD PRN Administration blood sugar Levothyroxine Sodium 112 mcg 12/03/16 11:30 12/03/16 11:44 Synthroid 112 Mcg PO 01/02/17 11:29 112 mcg DAILY CLAUDIA Administration Lorazepam 0.5 mg 12/03/16 11:18 12/03/16 22:00 Ativan 0.5 Mg PO 01/02/17 11:17 0.5 mg DAILY PRN PRN Administration ANXIETY Metformin HCl 500 mg 12/03/16 17:00 12/03/16 17:10 Glucophage 500 Mg PO 01/02/17 16:59 500 mg BIDWMEALS CLAUDIA Administration Methylprednisolone Sodium Succinate 40 mg 12/02/16 22:00 12/04/16 06:09 Solu-Medrol 40 Mg IV 01/01/17 21:59 40 mg Q8HT CLAUDIA Administration Multivitamins 1 tab 12/03/16 11:30 12/03/16 11:44 Tricia-Bee With C PO 01/02/17 11:29 1 tab DAILY CLAUDIA Administration Multivitamins 1 tab 12/03/16 11:45 12/03/16 11:44 Theragran Multivitamin PO 01/02/17 11:44 1 tab DAILY CLAUDIA Administration Pantoprazole Sodium 80 mg 12/03/16 11:45 12/03/16 11:44 Protonix 40mg Tablet PO 01/02/17 11:44 80 mg DAILY CLAUDIA Administration Paroxetine HCl 40 mg 12/03/16 11:30 12/03/16 11:43 Paxil 20 Mg PO 01/02/17 11:29 40 mg DAILY CLAUDIA Administration Raloxifene HCl 60 mg 12/03/16 11:30 12/03/16 11:44 Evista 60 Mg PO 01/02/17 11:29 60 mg DAILY CLAUDIA Administration Fluticasone/Salmeterol 2 puff 12/03/16 07:00 12/04/16 06:57 Advair Hfa 115/21 Common Canister* IH 01/02/17 06:59 2 puff BIDRT CLAUDIA Administration Simvastatin 20 mg 12/03/16 22:00 12/03/16 21:56 Zocor 20mg PO 01/02/17 21:59 20 mg HS CLAUDIA Administration Sodium Chloride 10 ml 12/03/16 14:00 12/04/16 06:10 Sodium Chloride 0.9% 10 Ml Flush Syringe IV 01/02/17 13:59 10 ml Q8HT CLAUDIA Administration Sodium Chloride 10 ml 12/03/16 08:45 Sodium Chloride 0.9% 10 Ml Flush Syringe IV 01/02/17 08:44 PRN PRN FLUSH Tramadol HCl 50 mg 12/03/16 11:18 12/03/16 14:24 Ultram 50 Mg PO 01/02/17 11:17 50 mg BID PRN PRN Administration PAIN Discontinued Medications Generic Name Dose Route Start Last Admin Trade Name Freq PRN Reason Stop Dose Admin Albuterol/Ipratropium Confirm 12/02/16 18:09 Duoneb 0.5-3 Mg/3 Ml Neb Administered 12/02/16 18:10 Dose 3 ml IH .STK-MED ONE Sodium Chloride 100 mls @ 20 mls/hr 12/02/16 17:58 12/02/16 22:58 Sodium Chloride 0.9% 100 Ml Ivpb IV 12/02/16 22:57 20 mls/hr .Q5H ONE Administration Non-Formulary Medication 1 each 12/02/16 20:00 Pharmacy Dosing Request 12/02/16 20:01 STAT ONE - Vitals & Intake/Output Vital Signs: Vital Signs Temperature 97.8 F 12/04/16 07:11 Pulse Rate 78 12/04/16 07:11 Respiratory Rate 20 12/04/16 07:11 Blood Pressure 116/82 12/04/16 07:11 O2 Sat by Pulse Oximetry 97 12/04/16 07:11 Oxygen-Last Documented O2 Percentage 2 Liters = 28% Intake & Output: Intake & Output 12/01/16 12/02/16 12/03/16 12/04/16 11:59 11:59 11:59 11:59 Intake Total 1648 1911 Output Total 1900 Balance 1648 11 Weight 76.36 kg - Lab Result Diagrams: 12/02/16 18:50 12/02/16 18:50 Lab Results-Last 24 Hrs: Accuchecks Date 12/03/16 Date 12/03/16 Time 16:30 Time 11:30 Accucheck Value: 189 Accucheck Value: 287 Micro Results-Entire Visit: Accuchecks Date 12/03/16 Date 12/03/16 Time 16:30 Time 11:30 Accucheck Value: 189 Accucheck Value: 287 - Radiology Exams Ordered Rad Exams-Entire Visit: Radiology Procedures Category Date Time Status CHEST 2 VIEWS (PA AND LAT) Routine Exams 12/02/16 18:00 Completed - Procedures and Test Procedures and Tests throughout Hospitalization: Therapy Orders & Screens 12/02/16 18:00 EKG ROUTINE Comment: Diagnosis: exac copd Respiratory Nebulizer UD Comment: Diagnosis: exac copd Name of medication?: duoneb QID PRN 12/02/16 19:00 Oxygen NASAL CANNULA 2 lpm Comment: O2 SAT 88% ON RM AIR Diagnosis: exac copd 12/03/16 07:00 Respiratory MDI BID Comment: ADVAIR 115/21 BID Diagnosis: exac copd Discharge Exam General Appearance: no apparent distress, alert Neurologic Exam: alert, oriented x 3, cooperative, normal mood/affect, nml cerebellar function, sensation nml, No motor deficits Skin Exam: normal color, warm, dry Eye Exam: PERRL, EOMI, eyes nml inspection Ears, Nose, Throat Exam: normal ENT inspection, pharynx normal, moist mucous membranes Neck Exam: normal inspection, non-tender, supple, full range of motion Respiratory Exam: diminished breath sounds, rhonchi, No respiratory distress Cardiovascular Exam: regular rate/rhythm, normal heart sounds Gastrointestinal/Abdomen Exam: soft, No tenderness, No mass Extremity Exam: normal inspection, normal range of motion Back Exam: normal inspection, normal range of motion, No CVA tenderness, No vertebral tenderness Pelvic Exam: deferred Rectal Exam: deferred Final Diagnosis/Problem List - Final Discharge Diagnosis/Problem (1) COPD exacerbation Current Visit: Yes Status: Acute Assessment & Plan: resolved Chief Complaint Diagnosis exac copd Allergies Allergy/AdvReac Type Severity Reaction Status Date / Time adhesive Allergy Verified 10/26/16 16:22 cephalexin [Cephalexin] Allergy Verified 10/26/16 16:22 latex [Latex] Allergy Verified 10/26/16 16:22 levofloxacin [From Levaquin] Allergy Verified 10/26/16 16:22 Penicillins Allergy Verified 10/26/16 16:22 cefaclor [From Ceclor] AdvReac Severe Verified 10/26/16 16:22 budesonide [From Pulmicort] AdvReac Mild BRONCHOSPAS Verified 10/26/16 16:22 M Vital Signs (Last 24 hours) Temp Pulse Resp BP Pulse Ox 12/04/16 07:11 97.8 F 78 20 116/82 97 12/04/16 06:57 97 H 18 98 12/04/16 04:22 97.3 F 18 128/60 94 L 12/04/16 03:50 98.5 F 106 H 18 122/62 95 12/04/16 00:00 98.5 F 106 H 18 122/62 95 12/03/16 19:52 98.3 F 104 H 18 126/58 95 12/03/16 19:02 103 H 20 96 12/03/16 15:10 97.5 F 86 20 159/78 96 12/03/16 14:47 104 H 18 96 12/03/16 12:41 97.6 F 87 20 168/82 96 12/03/16 10:47 96 H 20 93 L Current Medications Generic Name Dose Route Start Last Admin Trade Name Freq PRN Reason Stop Dose Admin Albuterol/Ipratropium 3 ml 12/03/16 07:00 12/04/16 06:57 Duoneb 0.5-3 Mg/3 Ml Neb IH 01/02/17 06:59 3 ml QIDRT CLAUDIA Administration Aspirin 81 mg 12/03/16 11:30 12/03/16 11:44 Ecotrin 81 Mg PO 01/02/17 11:29 81 mg DAILY CLAUDIA Administration Calcium Carbonate 1 tab 12/04/16 10:00 Calcium 500mg W/Vit D Tablet PO 01/03/17 09:59 DAILY CLAUDIA Clindamycin HCl/Dextrose 600 mg in 50 mls @ 100 mls/hr 12/02/16 22:00 06:09 Clindamycin-D5w 600 Mg/50 Ml IV 01/01/17 21:59 100 mls/hr Q8HT CLAUDIA Administration Insulin Aspart 0 unit 12/03/16 15:17 12/03/16 21:59 Novolog Insulin SQ 01/02/17 15:16 2 unit UD PRN Administration blood sugar Levothyroxine Sodium 112 mcg 12/03/16 11:30 12/03/16 11:44 Synthroid 112 Mcg PO 01/02/17 11:29 112 mcg DAILY CLAUDIA Administration Lorazepam 0.5 mg 12/03/16 11:18 12/03/16 22:00 Ativan 0.5 Mg PO 01/02/17 11:17 0.5 mg DAILY PRN PRN Administration ANXIETY Metformin HCl 500 mg 12/03/16 17:00 12/03/16 17:10 Glucophage 500 Mg PO 01/02/17 16:59 500 mg BIDWMEALS CLAUDIA Administration Methylprednisolone Sodium Succinate 40 mg 12/02/16 22:00 12/04/16 06:09 Solu-Medrol 40 Mg IV 01/01/17 21:59 40 mg Q8HT CLAUDIA Administration Multivitamins 1 tab 12/03/16 11:30 12/03/16 11:44 Tricia-Bee With C PO 01/02/17 11:29 1 tab DAILY CLAUDIA Administration Multivitamins 1 tab 12/03/16 11:45 12/03/16 11:44 Theragran Multivitamin PO 01/02/17 11:44 1 tab DAILY CLAUDIA Administration Pantoprazole Sodium 80 mg 12/03/16 11:45 12/03/16 11:44 Protonix 40mg Tablet PO 01/02/17 11:44 80 mg DAILY CLAUDIA Administration Paroxetine HCl 40 mg 12/03/16 11:30 12/03/16 11:43 Paxil 20 Mg PO 01/02/17 11:29 40 mg DAILY CLAUDIA Administration Raloxifene HCl 60 mg 12/03/16 11:30 12/03/16 11:44 Evista 60 Mg PO 01/02/17 11:29 60 mg DAILY CLAUDIA Administration Fluticasone/Salmeterol 2 puff 12/03/16 07:00 12/04/16 06:57 Advair Hfa 115/21 Common Canister* IH 01/02/17 06:59 2 puff BIDRT CLAUDIA Administration Simvastatin 20 mg 12/03/16 22:00 12/03/16 21:56 Zocor 20mg PO 01/02/17 21:59 20 mg HS CLAUDIA Administration Sodium Chloride 10 ml 12/03/16 14:00 12/04/16 06:10 Sodium Chloride 0.9% 10 Ml Flush Syringe IV 01/02/17 13:59 10 ml Q8HT CLAUDIA Administration Sodium Chloride 10 ml 12/03/16 08:45 Sodium Chloride 0.9% 10 Ml Flush Syringe IV 01/02/17 08:44 PRN PRN FLUSH Tramadol HCl 50 mg 12/03/16 11:18 12/03/16 14:24 Ultram 50 Mg PO 01/02/17 11:17 50 mg BID PRN PRN Administration PAIN Discontinued Medications Generic Name Dose Route Start Last Admin Trade Name Freq PRN Reason Stop Dose Admin Albuterol/Ipratropium Confirm 12/02/16 18:09 Duoneb 0.5-3 Mg/3 Ml Neb Administered 12/02/16 18:10 Dose 3 ml IH .STK-MED ONE Sodium Chloride 100 mls @ 20 mls/hr 12/02/16 17:58 12/02/16 22:58 Sodium Chloride 0.9% 100 Ml Ivpb IV 12/02/16 22:57 20 mls/hr .Q5H ONE Administration Non-Formulary Medication 1 each 12/02/16 20:00 Pharmacy Dosing Request 12/02/16 20:01 STAT ONE Intake & Output (Last 24 hours) 12/01/16 12/02/16 12/03/16 12/04/16 11:59 11:59 11:59 11:59 Intake Total 1648 1911 Output Total 1900 Balance 1648 11 Weight 76.36 kg Orders (Last 24 hours) Category Date Time Status Albuterol/Ipratropium 3ml Neb* [DUONEB 0.5-3 MG/3 ml Med 12/03/16 07:00 Active Neb] 3 ml IH QIDRT Aspirin EC 81 mg [Ecotrin 81 mg] Med 12/03/16 11:30 Active 81 mg PO DAILY Calcium Carb/Vitamin D 500 mg* [Calcium 500MG W/Vit D Med 12/04/16 10:00 Active Tablet] 1 tab PO DAILY Fluticasone/Salmeterol 115/21 [Advair Hfa 115/21 Common Med 12/03/16 07:00 Active canister*] 2 puff IH BIDRT Insulin Aspart [NovoLOG Insulin] Med 12/03/16 15:17 Active See Dose Instructions SQ UD PRN Levothyroxine Sodium 112 Mcg [Synthroid 112 Mcg] Med 12/03/16 11:30 Active 112 mcg PO DAILY Lorazepam 0.5 mg [Ativan 0.5 MG] Med 12/03/16 11:18 Active 0.5 mg PO DAILY PRN PRN Metformin HCl 500 mg [Glucophage 500 MG] Med 12/03/16 17:00 Active 500 mg PO BIDWMEALS Multivitamins,Therapeutic Tab* [Theragran Multivitamin* Med 12/03/16 11:45 Active ] 1 tab PO DAILY NaCl 0.9% 10 ML FLUSH [Sodium Chloride 0.9% 10 ML FLUSH Med 12/03/16 08:45 Active Syringe] 10 ml IV PRN PRN NaCl 0.9% 10 ML FLUSH [Sodium Chloride 0.9% 10 ML FLUSH Med 12/03/16 14:00 Active Syringe] 10 ml IV Q8HT PANTOPRAZOLE 40 mg Tablet [Protonix 40MG Tablet] Med 12/03/16 11:45 Active 80 mg PO DAILY Paroxetine HCl 20 mg [Paxil 20 MG] Med 12/03/16 11:30 Active 40 mg PO DAILY Raloxifene HCl 60 mg [Evista 60 MG] Med 12/03/16 11:30 Active 60 mg PO DAILY Simvastatin 20Mg [Zocor 20Mg] Med 12/03/16 22:00 Active 20 mg PO HS Tramadol HCl 50 mg [Ultram 50 mg] Med 12/03/16 11:18 Active 50 mg PO BID PRN PRN Vitamin B Comp W-C [Tricia-Bee with C] Med 12/03/16 11:30 Active 1 tab PO DAILY Respiratory MDI BID RT 12/03/16 07:00 Active Patient Care Notes (Last 24 hours) 12/03/16 15:[address] pt given tramadol per prn order for mid-epigastric pain, increases w deep breath (see MAR for admin time), pt states at this time pain is much better. Initialized on 12/03/16 15:30 - END OF NOTE 12/03/16 15:[address] made rounds at lunchtime, see SS order, will start at supper. Initialized on 12/03/16 15:17 - END OF NOTE (2) Diabetes mellitus type 2 Current Visit: Yes Status: Chronic - Discharge Discharge Date: 12/04/16 Disposition: Home, Self-Care Condition: Stable Prescriptions: New Clindamycin HCl 300 mg PO QID #20 capsule Continue Multivitamin [Multivitamins] 1 cap PO DAILY Omeprazole 20 MG [Prilosec 20 mg] 40 mg PO DAILY Aspirin [Aspir 81] 81 mg PO DAILY Raloxifene HCl 60 mg [Evista 60 MG] 60 mg PO DAILY Paroxetine HCl 20 mg [Paxil 20 MG] 40 mg PO DAILY Metformin HCl 500 mg [Glucophage 500 MG] 500 mg PO BIDWMEALS Albuterol/Ipratropium 3ml Neb* [DUONEB 0.5-3 MG/3 ml Neb] 3 ml IH Q6H Lovastatin 40 mg PO DAILY Fluticasone/Salmeterol [Advair 250-50 Diskus] 1 inh PO BID Calcium Carbonate/Vitamin D3 [Calcarb 600 W-Vitamin D Tab] 1 each PO DAILY Levothyroxine Sodium 112 Mcg [Synthroid 112 Mcg] 112 mcg PO DAILY Vit B Comp/C/Folic/Iron/Vit E [Vitamin B Complex Tablet] 1 tab PO DAILY Ipratropium/Albuterol Sulfate [Combivent Respimat Inhal [place]] 4 gm IH Q6HPRN PRN PRN Reason: sob Lorazepam 0.5 mg [Ativan 0.5 MG] 0.5 mg PO DAILY PRN PRN PRN Reason: Anxiety Tramadol HCl 50 mg [Ultram 50 mg] 50 mg PO BID PRN PRN MDD 100 PRN Reason: Pain Instructions: Chronic Obstructive Pulmonary Disease Follow up with: RENATO KIRBY [Primary Care Provider] - 1 Week
[2016-12-04] MEDS: THERAGRAN MULTIVITAMIN PO SCH (09:06)
[2016-12-04] MEDS: Glucophage 500 MG PO SCH (09:06)
[2016-12-04] MEDS: Protonix 40MG Tablet PO SCH (09:06)
[2016-12-04] MEDS: ECOTRIN 81 MG PO SCH (09:06)
[2016-12-04] MEDS: Paxil 20 MG PO SCH (09:06)
[2016-12-04] MEDS: SYNTHROID 112 MCG PO SCH (09:07)
[2016-12-04] MEDS: VITA-BEE WITH C PO SCH (09:07)
[2016-12-04] MEDS: EVISTA 60 MG PO SCH (09:07)
[2016-12-04] MEDS ORDERED: Calcium 500MG W/Vit D Tablet PO SCH (10:00)
[2016-12-04] MEDS ORDERED: VITAMIN D3 PO SCH (10:00)
[2016-12-04] MEDS ORDERED: [UNRECOGNIZED DRUG - OTHER] PO SCH (10:00)
[2016-12-04] MEDS ORDERED: FOLIC PO SCH (10:00)
[2016-12-04] MEDS ORDERED: NON-FORMULARY ITEM (Lovastatin [Lovastatin] 40 MG) PO SCH (10:00)
[2016-12-04] MEDS ORDERED: CALCIUM CARBONATE PO SCH (10:00)
[2016-12-04] MEDS ORDERED: VIT E PO SCH (10:00)
[2016-12-04] MEDS ORDERED: IRON PO SCH (10:00)
[2016-12-04] MEDS ORDERED: NON-FORMULARY ITEM (Omeprazole 20 Mg [Prilosec 20 Mg] 40 MG) PO SCH (10:00)
[2016-12-04] MEDS ORDERED: VIT B COMP PO SCH (10:00)
[2016-12-04] MEDS ORDERED: NON-FORMULARY ITEM (Multivitamin [Multivitamins] 1 CAP) PO SCH (10:00)
[2016-12-04 11:11] VITALS: BP 138/82
[2016-12-04 11:44] VITALS: PULSE 90; O2SAT 99
[2016-12-04] MEDS: NovoLOG Insulin SQ PRN (12:26)
[2016-12-04] MEDS: ULTRAM 50 MG PO PRN (12:34)
== END 2016-12-04 14:00 | disposition home or self-care (01) ==
LOC: MED SURG 17:33
PROVIDERS: ADMIT General Practice; ATTEND General Practice
DX: J44.1 Chronic obstructive pulmonary disease with (acute) exacerbation (principal); E11.9 Type 2 diabetes mellitus without complications; Z79.899 Other long term (current) drug therapy
CPT/HCPCS: 36415; 71020; 80053; 82962; 83880; 85027; 87631; 93005; 94640; 94760; G0378; J2920; A9270-GY